=== PATIENT | male | born 1955 | race Caucasian/White ===

== ENCOUNTER 2018-01-22 14:53 | Inpatient (IN) | payer OTHER ==
--- NOTE | 2018-01-22 15:03 | PDOC ---
History of Present Illness - General Stated Complaint: AMS Time Seen by Provider: 01/22/18 15:01 History Source: Correction Records - History of Present Illness Initial Comments: 01/22/18 15:18 A 62 yo M with PMHx of GERD, Schizophrenia, neurogenic bladder s/p suprapubic catheter, HLD, PVD, HTN, brought in from [facility] with diaphoresis and Mental status change. There was nobody by the bedside to provide hx. Pt was able to provide his name, but denied any symptoms. He is able to move all limbs and appears to be restless, crossing and uncrossing his legs. He is DNR/DNI, open to a trial period of feeding tubes and IV fluids and antibiotics as needed. PCP is Dr Liang Timing/Duration: unsure Past History - Past Medical History Allergies/Adverse Reactions: Allergies Allergy/AdvReac Type Severity Reaction Status Date / Time No Known Drug Allergies Allergy Verified 03/17/15 09:50 Home Medications: Ambulatory Orders Acetaminophen [Tylenol .Regular Strength -] 650 mg PO Q6H PRN 02/11/13 Aspirin 81 mg PO DAILY 02/11/13 Clozapine [Clozaril (Nf) -] 300 mg PO DAILY 02/11/13 Clozapine [Clozaril (Nf) -] 400 mg PO HS 02/11/13 Folic Acid - 1 mg PO DAILY 02/11/13 Gemfibrozil [Lopid -] 600 mg PO BID@0700,1630 02/11/13 Risperidone [Risperdal] 2 mg PO BID 02/11/13 Valproic Acid 1,500 mg PO HS 02/11/13 Valproic Acid [Depakene] 1,000 mg PO DAILY 02/11/13 Metoclopramide HCl [Reglan] 5 mg PO TID PRN 03/14/15 Pantoprazole Sodium [Protonix] 20 mg PO DAILY 03/14/15 Anemia: No Asthma: No Cancer: No Cardiac Disorders: No CVA: No COPD: No CHF: No Dementia: No Diabetes: No GI Disorders: Yes (ESOPHAGEAL REFLUX) Disorders: Yes (ATONY OF BLADDER) HTN: Yes Hypercholesterolemia: Yes Liver Disease: No Seizures: No Thyroid Disease: No - Surgical History Abdominal Surgery: No Appendectomy: No Cardiac Surgery: No Cholecystectomy: No Lung Surgery: No Neurologic Surgery: No Orthopedic Surgery: No - Immunization History Immunization Up to Date: Yes - Suicide/Smoking/Psychosocial Hx Smoking Status: No Smoking History: Unknown if ever smoked Number of Cigarettes Smoked Daily: 0 Hx Alcohol Use: No Drug/Substance Use Hx: No Substance Use Type: None Hx Substance Use Treatment: No Review of Systems - Review of Systems Able to Perform ROS?: No (Patient unable to provide) *Physical Exam - Vital Signs 01/22/18 17:23 Vital Signs Temp 99.3 F 01/22/18 15:05 Pulse 99 H 01/22/18 15:05 Resp 16 01/22/18 15:05 BP 101/76 01/22/18 15:05 Pulse Ox 99 01/22/18 15:15 Intake & Output 01/21/18 01/22/18 01/22/18 23:59 11:59 23:59 Weight 79.379 kg Other: Voiding Method External Catheter Height 1.78 m Body Mass Index (BMI) 25.1 Weight Measurement Method Estimated by Staff - Physical Exam General Appearance: Yes: Appropriately Dressed, Other (Able to state his name accurately, obeys commands erratically). No: Apparent Distress HEENT: positive: Pharynx Normal (Dry mucous membranes). negative: Scleral Icterus (L), Nasal Congestion, Sinus Tenderness Neck: positive: Supple. negative: Tender Respiratory/Chest: positive: Lungs Clear, Normal Breath Sounds. negative: Respiratory Distress Cardiovascular: positive: Regular Rate, S1, S2, Tachycardia Gastrointestinal/Abdominal: positive: Normal Bowel Sounds, Soft. negative: Tender, Distended, Hernia Male Genitalia: positive: normal genitalia, other (dark brown urine in bag with suprapubic catheter in place, no blood). negative: hematuria Musculoskeletal: negative: CVA Tenderness Extremity: positive: Normal Inspection, Other (distended leg veins). negative: Coldness, Cyanosis, Delayed Capillary Refill, Swelling Integumentary: positive: Warm Neurologic: positive: Alert, Motor Strength 5/5, Other (Baseline unknown. Pinrolling on right hand. Crossing and uncrossing legs). negative: Facial Droop ED Treatment Course - LABORATORY CBC & Chemistry Diagram: 01/22/18 16:00 01/22/18 20:00 Medical Decision Making - Medical Decision Making 01/22/18 16:44 With AMS- pt could have an intracranial bleed, no witnesses available by the bedside, has bruise on R forearm also R/o intracranial mass R/O sepsis- no temperature, so will hold off blood cultures CBC, CMP, CXR, PT/PTT, Lactic acid, UA, urine culture UA- LE 3+, WBC-21.8 Will give 1g ceftriaxone stat Gentle hydration 500ml stat to reassess for more fluids 01/22/18 16:[address] Liang for sepsis- Leucocytosis, tachycardia, positive UA 01/22/18 16:[address] head 01/22/18 17:02 Markedly dehydrated Cr-3.1, BUN 57, Na- 130, Cl-95 [facility] 1L [facility] 01/22/18 17:27 CK noted to be in [id number]. Plan 2nd Iv line stat 1L Normal saline added 01/22/18 18:24 Patient to be admitted to Dr Liang's service via hospitalist pending call back from hospitalist CT scan head- negative for acute pathology 01/22/18 18:36 D/W Dr Weaver, about alkalinizing urine with the high CK. He thinks hydration is preferred to avoid complications such as metabolic alkalosis 01/22/18 19:03 To get repeat CK in 8-12 hours. Pt signed out to Dr Brunner for continuity of care pending admission by hospitalist team *DC/Admit/Observation/Transfer Diagnosis at time of Disposition: UTI (urinary tract infection), Altered mental status - Discharge Dispostion Condition at time of disposition: Stable - Referrals - Patient Instructions - Post Discharge Activity
--- NOTE | 2018-01-22 15:12 | PDOC ---
Attending Attestation - Resident Resident Name: Sepideh Chang Jasiel - HPI HPI: 01/22/18 17:24 The patient is a 62 year old male with past medical history of hypertension, hyperlipidemia, GERD, schizophrenia, neurogenic bladder s/p catheter from [facility] for mental status changes noted today. Upon evaluation patient is A&O x1 and cannot give any further history. - Physicial Exam PE: 01/22/18 18:24 GENERAL: Awake and alert x2. in no acute distress HEAD: No signs of trauma EYES: PERRLA, EOMI, sclera anicteric, conjunctiva clear ENT: Auricles normal inspection, hearing grossly normal, nares patent, oropharynx clear without exudates. Moist mucosa NECK: Normal ROM, supple, no lymphadenopathy, JVD, or masses LUNGS: Breath sounds equal, clear to auscultation bilaterally. No wheezes, and no crackles HEART: Regular rate and rhythm, normal S1 and S2, no murmurs, rubs or gallops ABDOMEN: Soft, nontender, normoactive bowel sounds. No guarding, no rebound. No masses EXTREMITIES: Normal range of motion, no edema. No clubbing or cyanosis. No cords, erythema, or tenderness NEUROLOGICAL: Cranial nerves II through XII grossly intact. Normal speech. Follows commands. SKIN: Warm, Dry, normal turgor, no rashes or lesions noted. - Medical Decision Making 01/22/18 17:24 Documentation prepared by Lena Vázquez, acting as pediatric medical assistant for Janine Owen MD. <Lena Vázquez - Last Filed: 01/22/18 18:24> - Medical Decision Making Pt presents to the ED after [facility] for altered mental status. Baseline mental status is unclear. Labs show evidence of severe dehydration and rhabdomyolisis with acute renal failure. Will continue aggressive hydration and admit to medicine for continued management. 01/22/18 18:28 <Janine Owen - Last Filed: 01/22/18 18:38>
[2018-01-22] MEDS ORDERED: SODIUM CHLORIDE 0.9% 1000 ML INFUS.BAG IV ONE ×2 (15:42→18:10)
[2018-01-22 16:08] LABS: URINE APPEARANCE CLOUDY; URINE BILIRUBIN NEGATIVE (<2.0 mg/dL); URINE COLOR AMBER; URINE GLUCOSE (UA) NEGATIVE (NEGATIVE); URINE KETONE NEGATIVE (NEGATIVE); URINE NITRITE NEGATIVE (NEGATIVE); URINE UROBILINOGEN NEGATIVE mg/dL (0.2-1.0)
[2018-01-22 16:10] LABS: URINE LEUK ESTERASE 3+ (NEGATIVE); URINE PROTEIN 2+ (NEGATIVE)
[2018-01-22 16:14] LABS: EPI CELLS MODERATE /HPF (FEW); URINE BACTERIA FEW /hpf (NONE SEEN); URINE MUCUS RARE; YEAST MANY
[2018-01-22 16:34] LABS: HEMATOCRIT 42.4 % (35.4-49); HEMOGLOBIN 14.5 GM/dL (11.7-16.9); MCH 32.7 pg (25.7-33.7); MCHC 34.2 g/dl (32.0-35.9); MEAN CELL VOLUME 95.6 fl (80-96); PLATELET COUNT 256 K/MM3 (134-434); RBC 4.44 M/mm3 (4.00-5.60); RDW 13.9 % (11.9-15.9); WHITE BLOOD COUNT 21.8 K/mm3 (4.0-10.0)
[2018-01-22 16:45] LABS: ARTERIAL BLD GAS O2 SATURATION 96.4 % (90-98.9); ARTERIAL BLOOD GAS BASE EXCESS -4.8 meq/l (-2-2); ARTERIAL BLOOD GAS PCO2 26.2 mmHg (35-45); ARTERIAL BLOOD GAS pH 7.44 (7.35-7.45)
[2018-01-22 16:49] LABS: ALLENS TEST POSITIVE
[2018-01-22 16:52] LABS: INR 1.22 (0.82-1.09); PROTHROMBIN TIME (PATIENT) 13.8 SEC (9.7-13.0)
[2018-01-22 16:59] LABS: ALBUMIN 4.2 g/dl (3.4-5.0); ALK PHOS 141 U/L (45-117); ANION GAP 12 (8-16); BILIRUBIN,TOTAL 0.6 mg/dL (0.2-1.0); BLOOD UREA NITROGEN 57 mg/dL (7-18); CALCIUM 8.9 mg/dL (8.5-10.1); CHLORIDE 95 mmol/L (98-107); CO2 23 mmol/L (21-32); CREATININE 3.1 mg/dL (0.7-1.3); GLUCOSE,RANDOM 95 mg/dL (74-106); SGPT/ALT 45 U/L (12-78); SODIUM 130 mmol/L (136-145); TOT PROT 9.3 g/dl (6.4-8.2)
[2018-01-22 17:03] LABS: PLATELET ESTIMATE ADEQUATE
[2018-01-22 17:08] LABS: POTASSIUM 4.8 mmol/L (3.5-5.1); SGOT/AST 207 U/L (15-37)
[2018-01-22] MEDS ORDERED: CEFTRIAXONE 1 GM/50 ML BAG ONE (17:08)
[2018-01-22] MEDS ORDERED: SODIUM CHLORIDE 0.9% 500 ML INFUS.BAG IV ONE (17:22)
[2018-01-22] MEDS ORDERED: MAGNESIUM SULF 50% (8.12 MEQ/2 ML-1 GM VIAL) ONE (18:01)
--- NOTE | 2018-01-22 20:15 | PDOC ---
*Physical Exam - Vital Signs Last Vital Signs Temp Pulse Resp BP Pulse Ox 99.3 F 107 H 20 114/81 100 01/22/18 15:05 01/22/18 18:00 01/22/18 18:00 01/22/18 18:00 01/22/18 18:00 ED Treatment Course - LABORATORY CBC & Chemistry Diagram: 01/22/18 16:00 01/22/18 16:00 - ADDITIONAL ORDERS Additional order review: Laboratory Results 01/22/18 01/22/18 01/22/18 16:00 16:00 16:00 PT with INR INR PTT (Actin FS) Anticoagulation Therapy Puncture Site ABG pH ABG pCO2 at Pt Temp ABG pO2 at Pt Temp ABG HCO3 ABG O2 Sat (Measured) ABG O2 Content ABG Base Excess Travon Test O2 Delivery Device Oxygen Flow Rate Vent Mode Vent Rate Mechanical Rate Pressure Support Vent Sodium Potassium Chloride Carbon Dioxide Anion Gap BUN Creatinine Creat Clearance w eGFR Random Glucose Lactic Acid 1.9 Calcium Magnesium 1.5 L Total Bilirubin AST ALT Alkaline Phosphatase Ammonia Creatine Kinase Creatine Kinase Index Cancelled CK-MB (CK-2) Cancelled Total Protein Albumin Urine Color Urine Appearance Urine pH Ur Specific [place] Urine Protein Urine Glucose (UA) Urine Ketones Urine Blood Urine Nitrite Urine Bilirubin Urine Urobilinogen Ur Leukocyte Esterase Urine WBC (Auto) Urine RBC (Auto) Ur Epithelial Cells Urine Bacteria Urine Mucus Urine Yeast 01/22/18 01/22/18 01/22/18 16:00 16:00 16:00 PT with INR 13.80 H INR 1.22 H PTT (Actin FS) 55.4 H Anticoagulation Therapy Puncture Site ABG pH ABG pCO2 at Pt Temp ABG pO2 at Pt Temp ABG HCO3 ABG O2 Sat (Measured) ABG O2 Content ABG Base Excess Travon Test O2 Delivery Device Oxygen Flow Rate Vent Mode Vent Rate Mechanical Rate Pressure Support Vent Sodium Potassium Chloride Carbon Dioxide Anion Gap BUN Creatinine Creat Clearance w eGFR Random Glucose Lactic Acid Calcium Magnesium Total Bilirubin AST ALT Alkaline Phosphatase Ammonia Creatine Kinase 86443 H Creatine Kinase Index 0.2 CK-MB (CK-2) 31.884 H Total Protein Albumin Urine Color Urine Appearance Urine pH Ur Specific [place] Urine Protein Urine Glucose (UA) Urine Ketones Urine Blood Urine Nitrite Urine Bilirubin Urine Urobilinogen Ur Leukocyte Esterase Urine WBC (Auto) Urine RBC (Auto) Ur Epithelial Cells Urine Bacteria Urine Mucus Urine Yeast 01/22/18 01/22/18 01/22/18 16:00 16:00 16:00 PT with INR INR PTT (Actin FS) Anticoagulation Therapy Puncture Site ABG pH ABG pCO2 at Pt Temp ABG pO2 at Pt Temp ABG HCO3 ABG O2 Sat (Measured) ABG O2 Content ABG Base Excess Travon Test O2 Delivery Device Oxygen Flow Rate Vent Mode Vent Rate Mechanical Rate Pressure Support Vent Sodium 130 L Potassium 4.8 Chloride 95 L Carbon Dioxide 23 Anion Gap 12 BUN 57 H Creatinine 3.1 H Creat Clearance w eGFR 20.52 Random Glucose 95 Lactic Acid Calcium 8.9 Magnesium Total Bilirubin 0.6 AST 207 H ALT 45 Alkaline Phosphatase 141 H Ammonia < 10.00 L Creatine Kinase Creatine Kinase Index CK-MB (CK-2) Total Protein 9.3 H Albumin 4.2 Urine Color Joanne Urine Appearance Cloudy Urine pH 5.0 Ur Specific [place] 1.014 Urine Protein 2+ H Urine Glucose (UA) Negative Urine Ketones Negative Urine Blood 3+ H Urine Nitrite Negative Urine Bilirubin Negative Urine Urobilinogen Negative Ur Leukocyte Esterase 3+ H Urine WBC (Auto) 71 Urine RBC (Auto) 948 Ur Epithelial Cells Moderate Urine Bacteria Few Urine Mucus Rare Urine Yeast Many 01/22/18 15:42 PT with INR INR PTT (Actin FS) Anticoagulation Therapy No Result Required. Puncture Site Right radial ABG pH 7.44 ABG pCO2 at Pt Temp 26.2 L ABG pO2 at Pt Temp 109.0 H ABG HCO3 17.4 L ABG O2 Sat (Measured) 96.4 ABG O2 Content 18.6 ABG Base Excess -4.8 L Travon Test Positive O2 Delivery Device No Result Required. Oxygen Flow Rate 21% Vent Mode No Result Required. Vent Rate No Result Required. Mechanical Rate No Result Required. Pressure Support Vent No Result Required. Sodium Potassium Chloride Carbon Dioxide Anion Gap BUN Creatinine Creat Clearance w eGFR Random Glucose Lactic Acid Calcium Magnesium Total Bilirubin AST ALT Alkaline Phosphatase Ammonia Creatine Kinase Creatine Kinase Index CK-MB (CK-2) Total Protein Albumin Urine Color Urine Appearance Urine pH Ur Specific [place] Urine Protein Urine Glucose (UA) Urine Ketones Urine Blood Urine Nitrite Urine Bilirubin Urine Urobilinogen Ur Leukocyte Esterase Urine WBC (Auto) Urine RBC (Auto) Ur Epithelial Cells Urine Bacteria Urine Mucus Urine Yeast 01/22/18 16:00 RBC 4.44 MCV 95.6 MCHC 34.2 RDW 13.9 MPV 11.0 Neutrophils % No Result Required. Lymphocytes % No Result Required. - Medications Given in the ED: ED Medications Discontinued Medications Generic Name Dose Route Start Last Admin Trade Name Maribell PRN Reason Stop Dose Admin Ceftriaxone Sodium 1,000 mg 01/22/18 16:42 01/22/18 17:06 Rocephin - IVPUSH 01/22/18 16:43 1,000 mg ONCE ONE Administration Magnesium Sulfate/Dextrose 2 200 mls @ 100 mls/hr 01/22/18 17:20 01/22/18 17: 58 gm/ Miscellaneous IVPB 01/22/18 19:19 100 mls/hr ONCE ONE Administration Sodium Chloride 500 ml 01/22/18 15:42 01/22/18 16:16 Normal Saline - IV 01/22/18 15:43 500 ml ASDIR ONE Administration Sodium Chloride 1,000 ml 01/22/18 17:22 01/22/18 17:25 Normal Saline - IV 01/22/18 17:23 1,000 ml ONCE ONE Administration Sodium Chloride 1,000 ml 01/22/18 18:10 01/22/18 18:38 Normal Saline - IV 01/22/18 18:11 1,000 ml ONCE ONE Administration Medical Decision Making - Medical Decision Making Patient signed out to me in stable condition pending admission for Sepsis/ AMS secondary to UTI with white count of 20 along with urine corroborating UTI ( however, with moderate epithelial cells). Patient given 2.5 L NS and abx. Signed out to [employer] on service to admit to med surg under Eusebio. 01/22/18 20:10 *DC/Admit/Observation/Transfer Diagnosis at time of Disposition: UTI (urinary tract infection) Qualifiers: Urinary tract infection type: site unspecified Hematuria presence: with hematuria Qualified Code(s): N39.0 - Urinary tract infection, site not specified ; R31.9 - Hematuria, unspecified; R31.9 - Hematuria, unspecified Altered mental status Qualifiers: Altered mental status type: unspecified Qualified Code(s): R41.82 - Altered mental status, unspecified - Discharge Dispostion Condition at time of disposition: Stable Admit: Yes - Referrals - Patient Instructions - Post Discharge Activity
[2018-01-22 20:49] LABS: ANION GAP 11 (8-16); BLOOD UREA NITROGEN 58 mg/dL (7-18); CALCIUM 7.6 mg/dL (8.5-10.1); CHLORIDE 104 mmol/L (98-107); CO2 20 mmol/L (21-32); CREATININE 2.4 mg/dL (0.7-1.3); GLUCOSE,RANDOM 91 mg/dL (74-106); POTASSIUM 4.1 mmol/L (3.5-5.1); SODIUM 135 mmol/L (136-145)
--- NOTE | 2018-01-22 21:29 | HP ---
CHIEF COMPLAINT: diaphoresis and AMS PCP: Fermin THOMAS HISTORY OF PRESENT ILLNESS: This is a 62 year old male with a sgnificant past medical history of HTN, HLD, neurogenic bladder s/p S-P cath who presented to the ED with AMS and diaphoresis as [facility]. Pt reports no complaints and states that he is feeling fine. ER course was notable for: (1) BUN 57/Cr 3.1 (2[place] [address] (3) WBC 21.8 Recent Travel: pt denies PAST MEDICAL HISTORY: HTN, HLD, PVD, neurogenic bladder, GERD, schizophrenia PAST SURGICAL HISTORY: S-P catheter placement Social History: Smoking: pt denies Alcohol: pt denies Drugs: pt denies Family History: unk Allergies No Known Drug Allergies Allergy (Verified 03/17/15 09:50) HOME MEDICATIONS: 3 Medication Instructions Recorded Acetaminophen [Tylenol .Regular 650 mg PO Q6H PRN 02/11/13 Strength -] Aspirin 81 mg PO DAILY 02/11/13 Clozapine [Clozaril (Nf) -] 300 mg PO DAILY 02/11/13 Clozapine [Clozaril (Nf) -] 400 mg PO HS 02/11/13 Folic Acid - 1 mg PO DAILY 02/11/13 Gemfibrozil [Lopid -] 600 mg PO BID@0700,1630 02/11/13 Risperidone [Risperdal] 2 mg PO BID 02/11/13 Valproic Acid 1,500 mg PO HS 02/11/13 Valproic Acid [Depakene] 1,000 mg PO DAILY 02/11/13 Metoclopramide HCl [Reglan] 5 mg PO TID PRN 03/14/15 Pantoprazole Sodium [Protonix] 20 mg PO DAILY 03/14/15 REVIEW OF SYSTEMS CONSTITUTIONAL: Present: diaphoresis Absent: fever, chills, generalized weakness, malaise, loss of appetite, weight change HEENT: Absent: rhinorrhea, nasal congestion, throat pain, throat swelling, difficulty swallowing, mouth swelling, ear pain, eye pain, visual changes CARDIOVASCULAR: Absent: chest pain, syncope, palpitations, irregular heart rate, lightheadedness , peripheral edema RESPIRATORY: Absent: cough, shortness of breath, dyspnea with exertion, orthopnea, wheezing, stridor, hemoptysis GASTROINTESTINAL: Absent: abdominal pain, abdominal distension, nausea, vomiting, diarrhea, constipation, melena, hematochezia GENITOURINARY: Absent: dysuria, frequency, urgency, hesitancy, hematuria, flank pain, genital pain MUSCULOSKELETAL: Absent: myalgia, arthralgia, joint swelling, back pain, neck pain SKIN: Absent: rash, itching, pallor HEMATOLOGIC/IMMUNOLOGIC: Absent: easy bleeding, easy bruising, lymphadenopathy, frequent infections ENDOCRINE: Absent: unexplained weight gain, unexplained weight loss, heat intolerance, cold intolerance NEUROLOGIC: Present: mental status changes Absent: headache, focal weakness or paresthesias, dizziness, unsteady gait, seizure, bladder or bowel incontinence PSYCHIATRIC: Absent: anxiety, depression, suicidal or homicidal ideation, hallucinations. PHYSICAL EXAMINATION Vital Signs - 24 hr 3 01/22/18 01/22/18 01/22/18 15:05 15:15 18:00 Temperature 99.3 F Pulse Rate 99 H Pulse Rate [ 107 H Apical] Respiratory 16 20 Rate Blood Pressure 101/76 Blood Pressure 114/81 [Left Arm] O2 Sat by Pulse 99 99 100 Oximetry (%) GENERAL: Awake, alert, and fully oriented, in no acute distress. HEAD: Normal with no signs of trauma. EYES: Pupils equal, round and reactive to light, extraocular movements intact, sclera anicteric, conjunctiva clear. No lid lag. EARS, NOSE, THROAT: Ears normal, nares patent, oropharynx clear without exudates. Moist mucous membranes. NECK: Normal range of motion, supple without lymphadenopathy, JVD, or masses. LUNGS: Breath sounds equal, clear to auscultation bilaterally. No wheezes, and no crackles. No accessory muscle use. HEART: Regular rate and rhythm, normal S1 and S2 without murmur, rub or gallop. ABDOMEN: Soft, nontender, not distended, normoactive bowel sounds, no guarding, no rebound, no masses. No hepatomegaly or splenomegaly. MUSCULOSKELETAL: Normal range of motion at all joints. No bony deformities or tenderness. No CVA tenderness. UPPER EXTREMITIES: 2+ pulses, warm, well-perfused. No cyanosis. No clubbing. No peripheral edema. LOWER EXTREMITIES: 2+ pulses, warm, well-perfused. No calf tenderness. No peripheral edema. NEUROLOGICAL: Cranial nerves II-XII intact. Normal speech. Gait not observed. PSYCHIATRIC: Cooperative. Good eye contact. Appropriate mood and affect. SKIN: Warm, dry, normal turgor, no rashes or lesions noted, normal capillary refill. Laboratory Results - last 24 hr 3 01/22/18 01/22/18 01/22/18 15:42 16:00 16:00 WBC 21.8 H RBC 4.44 Hgb 14.5 Hct 42.4 MCV 95.6 MCH 32.7 MCHC 34.2 RDW 13.9 Plt Count 256 MPV 11.0 Total Counted 100 Neutrophils % No Result Required. Neutrophils % (Manual) 68.0 Band Neutrophils % 16.0 Lymphocytes % No Result Required. Lymphocytes % (Manual) 6.0 L Monocytes % (Manual) 8 Eosinophils % (Manual) 2.0 Platelet Estimate Adequate Platelet Comment No clumping noted [place] Cells 1+ PT with INR INR PTT (Actin FS) Anticoagulation Therapy No Result Required. Puncture Site Right radial ABG pH 7.44 ABG pCO2 at Pt Temp 26.2 L ABG pO2 at Pt Temp 109.0 H ABG HCO3 17.4 L ABG O2 Sat (Measured) 96.4 ABG O2 Content 18.6 ABG Base Excess -4.8 L [place]on Test Positive O2 Delivery Device No Result Required. Oxygen Flow Rate 21% Vent Mode No Result Required. Vent Rate No Result Required. Mechanical Rate No Result Required. Pressure Support Vent No Result Required. Sodium Potassium Chloride Carbon Dioxide Anion Gap BUN Creatinine Creat Clearance w eGFR Random Glucose Lactic Acid Calcium Magnesium Total Bilirubin AST ALT Alkaline Phosphatase Ammonia Creatine Kinase Creatine Kinase Index CK-MB (CK-2) Total Protein Albumin Urine Color Joanne Urine Appearance Cloudy Urine pH 5.0 Ur Specific [place] 1.014 Urine Protein 2+ H Urine Glucose (UA) Negative Urine Ketones Negative Urine Blood 3+ H Urine Nitrite Negative Urine Bilirubin Negative Urine Urobilinogen Negative Ur Leukocyte Esterase 3+ H Urine WBC (Auto) 71 Urine RBC (Auto) 948 Ur Epithelial Cells Moderate Urine Bacteria Few Urine Mucus Rare Urine Yeast Many 3 01/22/18 01/22/18 01/22/18 16:00 16:00 16:00 WBC RBC Hgb Hct MCV MCH MCHC RDW Plt Count MPV Total Counted Neutrophils % Neutrophils % (Manual) Band Neutrophils % Lymphocytes % Lymphocytes % (Manual) Monocytes % (Manual) Eosinophils % (Manual) Platelet Estimate Platelet Comment [place] Cells PT with INR 13.80 H INR 1.22 H PTT (Actin FS) 55.4 H Anticoagulation Therapy Puncture Site ABG pH ABG pCO2 at Pt Temp ABG pO2 at Pt Temp ABG HCO3 ABG O2 Sat (Measured) ABG O2 Content ABG Base Excess [place] Test O2 Delivery Device Oxygen Flow Rate Vent Mode Vent Rate Mechanical Rate Pressure Support Vent Sodium 130 L Potassium 4.8 Chloride 95 L Carbon Dioxide 23 Anion Gap 12 BUN 57 H Creatinine 3.1 H Creat Clearance w eGFR 20.52 Random Glucose 95 Lactic Acid 1.9 Calcium 8.9 Magnesium Total Bilirubin 0.6 AST 207 H ALT 45 Alkaline Phosphatase 141 H Ammonia < 10.00 L Creatine Kinase 59367 H Creatine Kinase Index 0.2 CK-MB (CK-2) 31.884 H Total Protein 9.3 H Albumin 4.2 Urine Color Urine Appearance Urine pH Ur Specific [place] Urine Protein Urine Glucose (UA) Urine Ketones Urine Blood Urine Nitrite Urine Bilirubin Urine Urobilinogen Ur Leukocyte Esterase Urine WBC (Auto) Urine RBC (Auto) Ur Epithelial Cells Urine Bacteria Urine Mucus Urine Yeast 3 01/22/18 01/22/18 01/22/18 16:00 16:00 20:00 WBC RBC Hgb Hct MCV MCH MCHC RDW Plt Count MPV Total Counted Neutrophils % Neutrophils % (Manual) Band Neutrophils % Lymphocytes % Lymphocytes % (Manual) Monocytes % (Manual) Eosinophils % (Manual) Platelet Estimate Platelet Comment [place] Cells PT with INR INR PTT (Actin FS) Anticoagulation Therapy Puncture Site ABG pH ABG pCO2 at Pt Temp ABG pO2 at Pt Temp ABG HCO3 ABG O2 Sat (Measured) ABG O2 Content ABG Base Excess [place] Test O2 Delivery Device Oxygen Flow Rate Vent Mode Vent Rate Mechanical Rate Pressure Support Vent Sodium 135 L Potassium 4.1 Chloride 104 Carbon Dioxide 20 L Anion Gap 11 BUN 58 H Creatinine 2.4 H D Creat Clearance w eGFR Random Glucose 91 Lactic Acid Calcium 7.6 L Magnesium 1.5 L Total Bilirubin AST ALT Alkaline Phosphatase Ammonia Creatine Kinase Creatine Kinase Index Cancelled CK-MB (CK-2) Cancelled Total Protein Albumin Urine Color Urine Appearance Urine pH Ur Specific [place] Urine Protein Urine Glucose (UA) Urine Ketones Urine Blood Urine Nitrite Urine Bilirubin Urine Urobilinogen Ur Leukocyte Esterase Urine WBC (Auto) Urine RBC (Auto) Ur Epithelial Cells Urine Bacteria Urine Mucus Urine Yeast ECG NSR vent rate 99, QTC [address]/T wave changes Radiology Reports CT head noncontrast THIS IS A PRELIMINARY REPORT FROM [facility] [employer] FINDINGS: 1. There is no evidence of an acute intracranial process, intracranial hemorrhage or mass effect. 2. Ventriculomegaly may be slightly out of proportion to the degree of atrophy. A component of hydrocephalus cannot entirely be excluded. Comparison previous imaging studies would be helpful to evaluate for the static or dynamic nature of this finding. 3. Visualized portions of the orbits, paranasal and mastoid sinuses are unremarkable. 4. The bony structures are unremarkable in appearance. THIS DOCUMENT HAS BEEN ELECTRONICALLY SIGNED Amanda Tobin MD 01/22/2018 18:09 EST ASSESSMENT/PLAN: 62yM with PMH HTN, HLD, PVD, neurogenic bladder, GERD, schizophrenia [facility] for diaphoresis and altered mental status. Sepsis secondary to uti - as evidenced by elevated WBC and HR - cont ceftriaxone - given 2.5L NS in ed - follow urine cultures Elevated CK - unclear etiology - will hold home lopid - given 2.5L IVF in ED, will repeat CK now and hold further IVF given hyponatremia and rapid correction - repeat CK in am NANNETTE - likely due to hypovolemia - given 2.5L NS in ED - repeat Cr improving - hold IVF pending repeat CK Hyponatremia - corrected from 130 to 135 with 2.5L NS in ED - would hold on further IVF at this point unless CK not improved on repeat labs metabolic encephalopathy secondary to urosepisis, NANNETTE, hyponatremia - cont current treatment plan HTN - BP stable off meds, cont to monitor HLD - hold home lopid given CK schizophrenia - cont home risperdal, clozaril and nuedexta DVT PPX - heparin 5000u BID FEN - hold on further IVF pending CK - bmp in am - low sodium diet Dispo: Pt currently requires further inpatient management of his emergent condition. Visit type - Emergency Visit Emergency Visit: Yes ED Registration Date: 01/22/18 Care time: The patient presented to the Emergency Department on the above date and was hospitalized for further evaluation of their emergent condition. - New Patient This patient is new to me today: Yes Date on this admission: 01/22/18 - Critical Care Critical Care patient: No Hospitalist Screening - Colonoscopy Questionnaire Colonoscopy Questionnaire: Colonoscopy Questionnaire - Patient: 50 - 75 years old and never had a screening colonoscopy: Unknown History of colon or rectal polyps, or CA: No History of IBD, Crohn's disease or UC: No History of abdominal radiation therapy as a child: No - Relative: 1 with colon or rectal CA, or polyps at age 60 or younger: Unknown Colon or rectal CA diagnosed at age 45 or younger: Unknown Multiple relatives with colon or rectal CA: Unknown - Outcome: Screening Result: Negative Screen
[2018-01-22] MEDS ORDERED: ACETAMINOPHEN 325 MG TABLET (FP) PO PRN (23:18)
[2018-01-23] MEDS ORDERED: SODIUM CHLORIDE 1,000 ML IV SCH (02:45)
[2018-01-23 08:15] LABS: BASO % 0.1 % (0-2.0); HEMATOCRIT 38.4 % (35.4-49); HEMOGLOBIN 13.1 GM/dL (11.7-16.9); MCH 32.6 pg (25.7-33.7); MCHC 34.2 g/dl (32.0-35.9); MEAN CELL VOLUME 95.3 fl (80-96); MEAN PLT VOLUME 10.8 fl (7.5-11.1); MONO % 7.9 % (3.8-10.2); PLATELET COUNT 233 K/MM3 (134-434); RBC 4.02 M/mm3 (4.00-5.60); RDW 13.7 % (11.9-15.9); WHITE BLOOD COUNT 20.3 K/mm3 (4.0-10.0)
[2018-01-23 08:32] LABS: CHLORIDE 105 mmol/L (98-107); SODIUM 138 mmol/L (136-145)
[2018-01-23 09:09] LABS: ANION GAP 11 (8-16); BLOOD UREA NITROGEN 55 mg/dL (7-18); CALCIUM 8.7 mg/dL (8.5-10.1); CO2 22 mmol/L (21-32); CREATININE 1.5 mg/dL (0.7-1.3); GLUCOSE,RANDOM 105 mg/dL (74-106); MAGNESIUM 2.4 mg/dL (1.8-2.4); PHOSPHOROUS 2.9 mg/dL (2.5-4.9)
[2018-01-23] MEDS ORDERED: PT OWN MED DRAWER 7, Y5N ONE (09:26)
[2018-01-23] MEDS ORDERED: DEXTROSE 5%-WATER - 50 ML IVPB ONE (09:26)
[2018-01-23] MEDS ORDERED: cefTRIAXone SODIUM 1 GM VIAL ONE (09:26)
[2018-01-23] MEDS: CEFTRIAXONE 1 GM in DEXTROSE 5%-WATER - 50 ML IVPB SCH (09:31)
[2018-01-23] MEDS: FOLIC ACID 1 MG TABLET (FP) PO SCH (09:32)
[2018-01-23] MEDS: risperiDONE 1 MG TABLET (FP) PO SCH ×2 (09:33→23:16)
[2018-01-23] MEDS: cloZAPine 100 MG TABLET PO SCH ×2 (09:33→23:17)
[2018-01-23] MEDS: ASPIRIN 81 MG CHEWABLE TABLETS PO SCH (09:33)
[2018-01-23] MEDS: HEPARIN NA (PORCINE) 5,000 UNITS/ML 1ML VIAL SQ SCH ×2 (09:35→23:16)
[2018-01-23] MEDS: VALPROIC ACID 250 MG CAPSULE PO SCH ×2 (09:35→23:16)
[2018-01-23] MEDS: DORZOLAMIDE 2% HCL OPHTHALMIC SOLUTION 10 ML BOTTLE OU SCH ×2 (09:36→23:17)
[2018-01-23] MEDS ORDERED: risperiDONE 2 MG TABLET PO SCH (10:00)
[2018-01-23] MEDS ORDERED: VALPROIC ACID 250 MG CAPSULE PO SCH ×2 (10:00→22:00)
--- NOTE | 2018-01-23 10:46 | EKG ---
Test Reason : Blood Pressure : / mmHG Vent. Rate : 099 BPM Atrial Rate : 099 BPM P-R Int : 174 ms QRS Dur : 082 ms QT Int : 344 ms P-R-T Axes : 049 005 053 degrees QTc Int : 441 ms NORMAL SINUS RHYTHM NORMAL ECG NO PREVIOUS ECGS AVAILABLE Confirmed by CAMPOS OLGUIN MD ([id number]) on 01/23/2018 10:45:28 AM Referred By: Confirmed By:CAMPOS OLGUIN MD
--- NOTE | 2018-01-23 10:57 | PN ---
Progress Note, Physician History of Present Illness: pt seen/examined . chart reviewed. Awake/ comfortable Denies pain. afebrile - Current Medication List Current Medications: Active Medications Aspirin (Asa -) 81 mg PO DAILY [facility] Last Admin: 01/23/18 09:33 Dose: 81 mg Clozapine (Clozaril -) 300 mg PO DAILY [facility] Last Admin: 01/23/18 09:33 Dose: 300 mg Clozapine (Clozaril -) 400 mg PO HS [facility] Dorzolamide HCl (Trusopt 2%) 1 drop OU BID [facility] Last Admin: 01/23/18 09:36 Dose: 1 drop Folic Acid (Folic Acid -) 1 mg PO DAILY [facility] Last Admin: 01/23/18 09:32 Dose: 1 mg Heparin Sodium (Porcine) (Heparin -) 5,000 unit SQ BID [facility] Last Admin: 01/23/18 09:35 Dose: 5,000 unit Ceftriaxone Sodium 1 gm/ (Dextrose) 50 mls @ 100 mls/hr IVPB DAILY [facility] PRN Reason: Protocol Last Admin: 01/23/18 09:31 Dose: 100 mls/hr Sodium Chloride (Normal Saline -) 1,000 mls @ 100 mls/hr IV ASDIR RAYNE Latanoprost (Xalatan 0.005% Eye Drops -) 1 drop OU HS [facility] Risperidone (Risperdal -) 2 mg PO HS RAYNE Risperidone (Risperdal -) 1 mg PO DAILY [facility] Last Admin: 01/23/18 09:33 Dose: 1 mg Senna (Senna -) 2 tab PO HS [facility] Valproic Acid (Depakene -) 1,000 mg PO BID [facility] Last Admin: 01/23/18 09:35 Dose: 1,000 mg - Objective Vital Signs: Vital Signs Temperature 97.7 F 01/23/18 07:37 Pulse Rate 107 H 01/23/18 07:37 Respiratory Rate 20 01/23/18 07:37 Blood Pressure 125/66 01/23/18 07:37 O2 Sat by Pulse Oximetry (%) 100 01/22/18 18:00 Constitutional: Yes: No Distress, Calm Eyes: Yes: Conjunctiva Clear Neck: Yes: Supple Cardiovascular: Yes: Regular Rate and Rhythm Respiratory: Yes: CTA Bilaterally Gastrointestinal: Yes: Soft, Other (suprapubic catheter +) Edema: No Labs: CBC, BMP 01/23/18 07:30 01/23/18 06:30 INR, PTT INR 1.22 (0.82-1.09) H 01/22/18 16:00 Problem List - Problems (1) Suprapubic catheter Code(s): Z93.59 - OTHER CYSTOSTOMY STATUS (2) UTI (urinary tract infection) Code(s): N39.0 - URINARY TRACT INFECTION, SITE NOT SPECIFIED Qualifiers: Urinary tract infection type: site unspecified Hematuria presence: with hematuria Qualified Code(s): N39.0 - Urinary tract infection, site not specified; R31.9 - Hematuria, unspecified; R31.9 - Hematuria, unspecified Assessment/Plan Clinically stable wbc elevated bun/ cr better continue abx increase fluids f/u labs/ cultures dvt prophylaxis will follow
--- NOTE | 2018-01-23 11:09 | CONSULT ---
Consult - text type - Consultation Consultation Note: Renal Consult for NANNETTE and Pigment Injury This is a 62 year old gentleman with PMhx of Neurogenic Bladder s/p Supra-pubic catheter who presented with diaphoresis and AMS and found to have UTI and Rhabdomyolysis with NANNETTE. Pt seen and examined at the bedside. Cannot recall the events that brought him into the hospital. Denies any pain, sob, N/V/D, Fever, chills, Rash. Denies using any NSAIDs or having contrast exposure. Denies any recent Abx use. Reports making good urine w/o flank pain via SP catheter. On IVF here. Spann in place with yellow urine. PMhx: As above Allergies: NKDA Family Hx: NC Social hx: no T/A/D ROS: As per HPI Home Medications Medication Instructions Recorded Aspirin 81 mg PO DAILY 02/11/13 Clozapine [Clozaril (Nf) -] 300 mg PO DAILY 02/11/13 Clozapine [Clozaril (Nf) -] 400 mg PO HS 02/11/13 Folic Acid - 1 mg PO DAILY 02/11/13 Gemfibrozil [Lopid -] 600 mg PO BID@0700,1630 02/11/13 Risperidone [Risperdal] 1 mg PO DAILY 02/11/13 Valproic Acid [Depakene] 1,000 mg PO BID 02/11/13 Pantoprazole Sodium [Protonix] 20 mg PO DAILY 03/14/15 Cholecalciferol (Vitamin D3) 50,000 unit PO WEEKLY 01/22/18 [Optimal D3] Dextromethorphan HBr/Quinidine 1 each PO BID 01/22/18 [Nuedexta 20-10 mg Capsule] Dorzolamide HCl [Trusopt 2%] 1 drop OU BID 01/22/18 Latanoprost 0.005% Eye Drops 1 drop OU HS 01/22/18 [Xalatan 0.005% Eye Drops -] Risperidone [Risperdal] 2 mg PO HS 01/22/18 Sennosides [Senna] 2 tab PO HS 01/22/18 Vital Signs Temperature 97.7 F 01/23/18 07:37 Pulse Rate 107 H 01/23/18 07:37 Respiratory Rate 20 01/23/18 07:37 Blood Pressure 125/66 01/23/18 07:37 O2 Sat by Pulse Oximetry (%) 100 05/06/18 18:00 Intake & Output 01/20/18 01/21/18 01/22/18 01/23/18 23:59 23:59 23:59 23:59 Intake Total 1999 395 Output Total 100 Balance 1999 295 Weight 79.379 kg 80.921 kg NAD, awake and alert Oriented x 2 Dry MM No JVD RRR, No M/R CTA (anterior exam) soft, mid distension, + SP catheter in place with no discharge around exit site No LE edema, clubbing or cyanosis Spann bag with yellow urine CBC, BMP 01/23/18 07:30 01/23/18 06:30 Laboratory Tests 01/22/18 01/22/18 01/23/18 16:00 23:00 06:30 Calcium 8.7 Phosphorus 2.9 Magnesium 2.4 D Creatine Kinase 03604 H 8936 H 8670 H Laboratory Tests 01/22/18 01/23/18 16:00 06:30 Urine Protein 2+ H Urine Blood 3+ H Ur Leukocyte Esterase 3+ H Urine WBC (Auto) 71 Urine RBC (Auto) 948 Valproic Acid 46.044 L Current Medications Aspirin (Asa -) 81 mg PO DAILY [facility] Last Admin: 01/23/18 09:33 Dose: 81 mg Clozapine (Clozaril -) 300 mg PO DAILY [facility] Last Admin: 01/23/18 09:33 Dose: 300 mg Clozapine (Clozaril -) 400 mg PO HS [facility] Dorzolamide HCl (Trusopt 2%) 1 drop OU BID [facility] Last Admin: 01/23/18 09:36 Dose: 1 drop Folic Acid (Folic Acid -) 1 mg PO DAILY [facility] Last Admin: 01/23/18 09:32 Dose: 1 mg Heparin Sodium (Porcine) (Heparin -) 5,000 unit SQ BID [facility] Last Admin: 01/23/18 09:35 Dose: 5,000 unit Ceftriaxone Sodium 1 gm/ (Dextrose) 50 mls @ 100 mls/hr IVPB DAILY [facility] PRN Reason: Protocol Last Admin: 01/23/18 09:31 Dose: 100 mls/hr Sodium Chloride (Normal Saline -) 1,000 mls @ 100 mls/hr IV ASDIR RAYNE Latanoprost (Xalatan 0.005% Eye Drops -) 1 drop OU HS [facility] Risperidone (Risperdal -) 2 mg PO HS [facility] Risperidone (Risperdal -) 1 mg PO DAILY [facility] Last Admin: 01/23/18 09:33 Dose: 1 mg Senna (Senna -) 2 tab PO HS [facility] Valproic Acid (Depakene -) 1,000 mg PO BID [facility] Last Admin: 01/23/18 09:35 Dose: 1,000 mg 62 year old gentleman with PMhx of Neurogenic Bladder s/p Supra-pubic catheter who presented with diaphoresis and AMS and found to have UTI and Rhabdomyolysis with NANNETTE. #Acute Renal Failure in setting of Rhabdomyolysis/UTI #Rhabdomyolysis #UTI/Sepsis #Hematuria #Obstructive Uropathy with Supra-pubic catheter Etiology of renal failure could be pigment injury vs volume depletion Check Urine studies for FeNa, UPCR 'Repeat UA in 48 hours to access for improvement in hematuira (likely a result of cystitis) Continue Abx, f/u blood and urine cultures if renal function continues to improve no need for renal imaging etiology of rhabdomyolysis is unclear at this time Continue isotonic saline at 100cc per hour Trend BMP, Mg, Phos Continue Psych meds as per primary Thank you Will follow Kenny Weaver DO
[2018-01-23] MEDS: SODIUM CHLORIDE 1,000 ML IV SCH (11:29)
--- NOTE | 2018-01-23 17:38 | CON.GU ---
Consult Consult Specialty:: urology Reason for Consultation:: uti/acute renal insufficiency/neurogenic bladder - History of Present Illness Chief Complaint: neurogenic bladder/TERESA/uti History of Present Illness: Patient with longstanding history of a neurogenic bladder managed with a suprapubic tube. The patient is admitted with a uti and acute renal insufficiency. The patient is unable to give a good history due to psychiatric illness. - History Source History Provided By: Medical Record, Caregiver Limitations to Obtaining History: Clinical Condition - Alcohol/Substance Use Hx Alcohol Use: No - Smoking History Smoking history: Unknown if ever smoked Aproximately how many cigarettes per day: 0 Home Medications - Allergies Allergies/Adverse Reactions: Allergies Allergy/AdvReac Type Severity Reaction Status Date / Time No Known Drug Allergies Allergy Verified 03/17/15 09:50 - Home Medications Home Medications: Ambulatory Orders Aspirin 81 mg PO DAILY 02/11/13 Clozapine [Clozaril (Nf) -] 300 mg PO DAILY 02/11/13 Clozapine [Clozaril (Nf) -] 400 mg PO HS 02/11/13 Folic Acid - 1 mg PO DAILY 02/11/13 Gemfibrozil [Lopid -] 600 mg PO BID@0700,1630 02/11/13 Risperidone [Risperdal] 1 mg PO DAILY 02/11/13 Valproic Acid [Depakene] 1,000 mg PO BID 02/11/13 Pantoprazole Sodium [Protonix] 20 mg PO DAILY 03/14/15 Cholecalciferol (Vitamin D3) [Optimal D3] 50,000 unit PO WEEKLY 01/22/18 Dextromethorphan HBr/Quinidine [Nuedexta 20-10 mg Capsule] 1 each PO BID Dorzolamide HCl [Trusopt 2%] 1 drop OU BID 01/22/18 Latanoprost 0.005% Eye Drops [Xalatan 0.005% Eye Drops -] 1 drop OU HS 01/22/18 Risperidone [Risperdal] 2 mg PO HS 01/22/18 Sennosides [Senna] 2 tab PO HS 01/22/18 Physical Exam- Vital Signs: Vital Signs Temperature 98.7 F 01/23/18 13:22 Pulse Rate 101 H 01/23/18 13:22 Respiratory Rate 18 01/23/18 13:22 Blood Pressure 136/75 01/23/18 13:22 O2 Sat by Pulse Oximetry (%) 98 01/23/18 09:00 Constitutional: Yes: Well Nourished, No Distress, Calm Eyes: Yes: WNL, Conjunctiva Clear, EOM Intact HENT: Yes: WNL Neck: Yes: WNL, Supple, Trachea Midline Cardiovascular: Yes: Regular Rate and Rhythm Respiratory: Yes: WNL, Regular Gastrointestinal: Yes: WNL, Normal Bowel Sounds, Soft Renal/: Yes: WNL Pelvis: Yes: WNL Testicles: Yes: WNL Scrotum: Yes: WNL Penis: Yes: WNL Prostate Exam: Yes: WNL Musculoskeletal: Yes: WNL Labs: CBC, BMP 01/23/18 07:30 01/23/18 06:30 Assessment/Plan imp acute renal insufficiency uti neurogenic bladder plan suprapubic tube change will be needed Q 4-6 weeks continue antibiotics and follow creatinine procedure note suprapubic tube catheter changed emergently due to clinical status. 26 thai daigle placed
[2018-01-23] MEDS: SENNOSIDES 8.6MG TABLET (FP) PO SCH (23:16)
[2018-01-23] MEDS: LATANOPROST 0.005% OPHTH SOLN 2.5ML BOTTLE OU SCH (23:17)
[2018-01-24 08:05] LABS: BASO % 0.4 % (0-2.0); HEMATOCRIT 35.2 % (35.4-49); HEMOGLOBIN 12.1 GM/dL (11.7-16.9); LYMPH % 11.8 % (8-40); MCH 32.5 pg (25.7-33.7); MCHC 34.3 g/dl (32.0-35.9); MEAN CELL VOLUME 94.8 fl (80-96); MEAN PLT VOLUME 10.7 fl (7.5-11.1); NEUT % 77.8 % (42.8-82.8); PLATELET COUNT 207 K/MM3 (134-434); RBC 3.71 M/mm3 (4.00-5.60); RDW 13.6 % (11.9-15.9); WHITE BLOOD COUNT 15.4 K/mm3 (4.0-10.0)
[2018-01-24 08:30] LABS: CHLORIDE 104 mmol/L (98-107); POTASSIUM 3.9 mmol/L (3.5-5.1); SODIUM 136 mmol/L (136-145)
[2018-01-24 08:50] LABS: ALBUMIN 2.8 g/dl (3.4-5.0); ALK PHOS 90 U/L (45-117); ANION GAP 9 (8-16); BILIRUBIN,TOTAL 0.6 mg/dL (0.2-1.0); BLOOD UREA NITROGEN 37 mg/dL (7-18); CALCIUM 8.1 mg/dL (8.5-10.1); CO2 23 mmol/L (21-32); GLUCOSE,RANDOM 86 mg/dL (74-106); SGOT/AST 88 U/L (15-37); SGPT/ALT 32 U/L (12-78); TOT PROT 6.5 g/dl (6.4-8.2)
[2018-01-24] MEDS ORDERED: cefTRIAXone SODIUM 1 GM VIAL ONE (09:41)
[2018-01-24] MEDS ORDERED: DEXTROSE 5%-WATER - 50 ML IVPB ONE (09:42)
[2018-01-24] MEDS: CEFTRIAXONE 1 GM in DEXTROSE 5%-WATER - 50 ML IVPB SCH (10:01)
[2018-01-24] MEDS: HEPARIN NA (PORCINE) 5,000 UNITS/ML 1ML VIAL SQ SCH ×2 (10:01→21:34)
[2018-01-24] MEDS: ASPIRIN 81 MG CHEWABLE TABLETS PO SCH (10:01)
[2018-01-24] MEDS: FOLIC ACID 1 MG TABLET (FP) PO SCH (10:01)
[2018-01-24] MEDS: risperiDONE 1 MG TABLET (FP) PO SCH ×2 (10:01→21:36)
[2018-01-24] MEDS: cloZAPine 100 MG TABLET PO SCH ×2 (10:02→21:38)
[2018-01-24] MEDS: VALPROIC ACID 250 MG CAPSULE PO SCH ×2 (10:02→21:43)
[2018-01-24] MEDS: DORZOLAMIDE 2% HCL OPHTHALMIC SOLUTION 10 ML BOTTLE OU SCH ×2 (10:03→21:42)
[2018-01-24] MEDS: SODIUM CHLORIDE 1,000 ML IV SCH ×4 (11:47→23:42)
--- NOTE | 2018-01-24 13:03 | PN ---
Progress Note, Physician Chief Complaint: events noted pt is calm no distress - Current Medication List Current Medications: Active Medications Aspirin (Asa -) 81 mg PO DAILY [facility] Last Admin: 01/24/18 10:01 Dose: 81 mg Clozapine (Clozaril -) 300 mg PO DAILY [facility] Last Admin: 01/24/18 10:02 Dose: 300 mg Clozapine (Clozaril -) 400 mg PO HS [facility] Last Admin: 01/23/18 23:17 Dose: 400 mg Dorzolamide HCl (Trusopt 2%) 1 drop OU BID [facility] Last Admin: 01/24/18 10:03 Dose: 1 drop Folic Acid (Folic Acid -) 1 mg PO DAILY [facility] Last Admin: 01/24/18 10:01 Dose: 1 mg Heparin Sodium (Porcine) (Heparin -) 5,000 unit SQ BID [facility] Last Admin: 01/24/18 10:01 Dose: 5,000 unit Ceftriaxone Sodium 1 gm/ (Dextrose) 50 mls @ 100 mls/hr IVPB DAILY [facility] PRN Reason: Protocol Last Admin: 01/24/18 10:01 Dose: 100 mls/hr Sodium Chloride (Normal Saline -) 1,000 mls @ 100 mls/hr IV ASDIR [facility] Last Admin: 01/24/18 11:47 Dose: 100 mls/hr Latanoprost (Xalatan 0.005% Eye Drops -) 1 drop OU [facility] Last Admin: 01/23/18 23:17 Dose: 1 drop Risperidone (Risperdal -) 2 mg PO HS [facility] Last Admin: 01/23/18 23:16 Dose: 2 mg Risperidone (Risperdal -) 1 mg PO DAILY [facility] Last Admin: 01/24/18 10:01 Dose: 1 mg Senna (Senna -) 2 tab PO [facility] Last Admin: 01/23/18 23:16 Dose: 2 tab Valproic Acid (Depakene -) 1,000 mg PO BID [facility] Last Admin: 01/24/18 10:02 Dose: 1,000 mg - Objective Vital Signs: Vital Signs Temperature 98.8 F 01/24/18 06:00 Pulse Rate 105 H 01/24/18 06:00 Respiratory Rate 20 01/24/18 06:00 Blood Pressure 126/70 01/24/18 06:00 O2 Sat by Pulse Oximetry (%) 94 L 05/07/18 21:00 Constitutional: Yes: No Distress, Calm Cardiovascular: Yes: Regular Rate and Rhythm Respiratory: Yes: Diminished Gastrointestinal: Yes: Normal Bowel Sounds, Soft, Other (suprapubic cath). No: Tenderness Edema: No Labs: CBC, BMP 01/24/18 06:15 01/24/18 06:15 INR, PTT INR 1.22 (0.82-1.09) H 01/22/18 16:00 Problem List - Problems (1) Sepsis Code(s): A41.9 - SEPSIS, UNSPECIFIED ORGANISM (2) Rhabdomyolysis Code(s): M62.82 - RHABDOMYOLYSIS (3) Acute kidney failure Code(s): N17.9 - ACUTE KIDNEY FAILURE, UNSPECIFIED (4) Altered mental status Code(s): R41.82 - ALTERED MENTAL STATUS, UNSPECIFIED Qualifiers: Altered mental status type: unspecified Qualified Code(s): R41.82 - Altered mental status, unspecified (5) Suprapubic catheter Code(s): Z93.59 - OTHER CYSTOSTOMY STATUS (6) UTI (urinary tract infection) Code(s): N39.0 - URINARY TRACT INFECTION, SITE NOT SPECIFIED Qualifiers: Urinary tract infection type: site unspecified Hematuria presence: with hematuria Qualified Code(s): N39.0 - Urinary tract infection, site not specified; R31.9 - Hematuria, unspecified; R31.9 - Hematuria, unspecified Assessment/Plan PLAN IV antibiotics Suprapubic cath changed by renal function better iv fluids trend CPK clinically improving-- WBC decreasing
--- NOTE | 2018-01-24 15:58 | PN ---
Progress Note (short form) - Note Progress Note: Renal Follow up for NANNETTE Pt seen and examined at the bedside groggy but awakens to verbal stimuli denies any CP, SOB, abd pain on IVF suprapubic catheter was exchanged making urine Vital Signs Temperature 99.8 F H 01/24/18 15:49 Pulse Rate 94 H 01/24/18 15:49 Respiratory Rate 22 01/24/18 15:49 Blood Pressure 126/82 01/24/18 15:49 O2 Sat by Pulse Oximetry (%) 93 L 01/24/18 09:00 Intake & Output 01/21/18 01/22/18 01/23/18 01/24/18 23:59 23:59 23:59 23:59 Intake Total 1999 775 Output Total 1100 Balance 1999 - Weight 79.379 kg 80.921 kg NAD, sleeping No JVD RRR, No M/R CTA (anterior exam) No LE edema, clubbing or cyanosis Spann bag with yellow urine CBC, BMP 01/24/18 06:15 01/24/18 06:15 Current Medications Aspirin (Asa -) 81 mg PO DAILY [facility] Last Admin: 01/24/18 10:01 Dose: 81 mg Clozapine (Clozaril -) 300 mg PO DAILY [facility] Last Admin: 01/24/18 10:02 Dose: 300 mg Clozapine (Clozaril -) 400 mg PO HS [facility] Last Admin: 01/23/18 23:17 Dose: 400 mg Dorzolamide HCl (Trusopt 2%) 1 drop OU BID [facility] Last Admin: 01/24/18 10:03 Dose: 1 drop Folic Acid (Folic Acid -) 1 mg PO DAILY [facility] Last Admin: 01/24/18 10:01 Dose: 1 mg Heparin Sodium (Porcine) (Heparin -) 5,000 unit SQ BID [facility] Last Admin: 01/24/18 10:01 Dose: 5,000 unit Ceftriaxone Sodium 1 gm/ (Dextrose) 50 mls @ 100 mls/hr IVPB DAILY [facility] PRN Reason: Protocol Last Admin: 01/24/18 10:01 Dose: 100 mls/hr Sodium Chloride (Normal Saline -) 1,000 mls @ 100 mls/hr IV ASDIR [facility] Last Admin: 01/24/18 11:47 Dose: 100 mls/hr Latanoprost (Xalatan 0.005% Eye Drops -) 1 drop OU HS [facility] Last Admin: 01/23/18 23:17 Dose: 1 drop Risperidone (Risperdal -) 2 mg PO HS [facility] Last Admin: 01/23/18 23:16 Dose: 2 mg Risperidone (Risperdal -) 1 mg PO DAILY [facility] Last Admin: 01/24/18 10:01 Dose: 1 mg Senna (Senna -) 2 tab PO [facility] Last Admin: 01/23/18 23:16 Dose: 2 tab Valproic Acid (Depakene -) 1,000 mg PO BID [facility] Last Admin: 01/24/18 10:02 Dose: 1,000 mg 62 year old gentleman with PMhx of Neurogenic Bladder s/p Supra-pubic catheter who presented with diaphoresis and AMS and found to have UTI and Rhabdomyolysis with NANNETTE. #Acute Renal Failure in setting of Rhabdomyolysis/UTI #Rhabdomyolysis #UTI/Sepsis #Hematuria #Obstructive Uropathy with Supra-pubic catheter Renal function improved s/p IVF urine studies pending CK levels have downtrended, will decrease IVF rate Trend renal function, electrolytes and CK levels daily Continue Abx for UTI/Sepsis Thank you Will follow Kenny Weaver DO
[2018-01-24] MEDS ORDERED: PT OWN MED DRAWER 7, Y5N ONE (21:33)
[2018-01-24] MEDS: SENNOSIDES 8.6MG TABLET (FP) PO SCH (21:36)
[2018-01-24] MEDS: LATANOPROST 0.005% OPHTH SOLN 2.5ML BOTTLE OU SCH (21:42)
[2018-01-25] MEDS ORDERED: FUROSEMIDE 40 MG/4 ML INJECTABLE VIAL IVPUSH ONE (04:15)
[2018-01-25] MEDS ORDERED: morphine SULFATE 4 MG/ML VIAL IVPUSH ONE (04:16)
[2018-01-25] MEDS ORDERED: morphine SULFATE 4 MG/ML VIAL ONE (04:17)
[2018-01-25] MEDS ORDERED: FUROSEMIDE 40 MG/4 ML INJECTABLE VIAL ONE (04:18)
--- NOTE | 2018-01-25 04:19 | RAPID ---
<Feng Daniels - Last Filed: 01/25/18 04:50> Physical Examination Vital Signs: Vital Signs Temperature 98.6 F 01/25/18 00:00 Pulse Rate 98 H 01/25/18 00:00 Respiratory Rate 20 01/25/18 00:00 Blood Pressure 122/76 01/25/18 00:00 O2 Sat by Pulse Oximetry (%) 93 L 01/24/18 21:00 Findings/Remarks: HX Rapid response called at 4:15am. Upon arrival, team was informed that patient became acutely short of breath. Patient is unable to provide a detailed history. Patient is not responding to name and is moaning in distress. PE: Vitals BP 112/61 HR 125 bpm 46% O2 saturation on RA --> 76% O2 100% nonrebreather Gen: severe respiratory distress Heart: tachycardic Lungs: crackles diffusely. tachypneic, increase WOB, increased use of accessory muscles, moaning in bed Abd: distended, suprapubic catheter in place Skin: mottling of skin on abdomen and b/l lower extremities Assessment: -Acute hypoxic respiratory failure possibly 2/2 aspiration Plan: -100% O2 nonrebreather -lasix 20mg IV push -morphine 2mg IV push stat x2 -ativan PRN -Molst form in chart, patient is DNR/DNI -family (sister) is being notified, unable to be at bedside - requesting REHABILITATION TECH -starting morphine ggt Labs: CBC, BMP 01/24/18 06:15 01/24/18 06:15 <Diallo Stein - Last Filed: 01/25/18 06:30> Physical Examination Vital Signs: Vital Signs Temperature 98.6 F 01/25/18 00:00 Pulse Rate 98 H 01/25/18 00:00 Respiratory Rate 20 01/25/18 00:00 Blood Pressure 122/76 01/25/18 00:00 O2 Sat by Pulse Oximetry (%) 93 L 01/24/18 21:00 Findings/Remarks: ADDENDUM - Family Proxy Sister wants Comfort care and pt. has MOLST form also stating he wants comfort - Mother is in Hospice and cannot be reached - Morphine gtt. ordered for comfort Labs: CBC, BMP 01/24/18 06:15 01/24/18 06:15
[2018-01-25] MEDS ORDERED: MORPHINE 100 MG in SODIUM CHLORIDE 98 ML IVPB SCH (04:30)
--- NOTE | 2018-01-25 07:39 | PN ---
Progress Note (short form) - Note Progress Note: Re-assessed. pt. appears comfortable on morphine gtt. RR 20, not moaning. not responding to verbal or tactile stimuli, not following commands. Sister (Mckenna Goel) called to provide update on brother's condition. Aware that pt's saturation declined overnight, not improving with non-invasive measures. As per MOLST form and sister, no further invasive measures needed. GOC is comfort as this point. She is aware he is comfort measures. She will try to come to bedside later in the day but may not be able to, would like phone updates if possible. Discussed with nursing to contact PCP, when PCP is available to update on patient's condition.
[2018-01-25 09:16] LABS: HEMATOCRIT 39.8 % (35.4-49); HEMOGLOBIN 13.7 GM/dL (11.7-16.9); MCH 33.5 pg (25.7-33.7); MCHC 34.4 g/dl (32.0-35.9); MEAN CELL VOLUME 97.2 fl (80-96); PLATELET COUNT 227 K/MM3 (134-434); WHITE BLOOD COUNT 12.8 K/mm3 (4.0-10.0)
[2018-01-25] MEDS: cloZAPine 100 MG TABLET PO SCH (09:41)
[2018-01-25] MEDS: risperiDONE 1 MG TABLET (FP) PO SCH (09:41)
[2018-01-25] MEDS: FOLIC ACID 1 MG TABLET (FP) PO SCH (09:41)
[2018-01-25] MEDS: VALPROIC ACID 250 MG CAPSULE PO SCH (09:41)
[2018-01-25] MEDS: ASPIRIN 81 MG CHEWABLE TABLETS PO SCH (09:41)
[2018-01-25 10:07] LABS: CHLORIDE 103 mmol/L (98-107); SODIUM 137 mmol/L (136-145)
--- NOTE | 2018-01-25 10:20 | PN ---
Progress Note (short form) - Note Progress Note: Events noted pt deteriorated last night- hypoxic and unresponsive labored breathing on Morphine gtt- sister aware Vitals noted S1 S2 RRR Lungs decreased Abd- soft, ND, BS+ no edema PLAN comfort care dc all po meds, antibiotics keep Morphine gtt Problem List - Problems (1) Sepsis Code(s): A41.9 - SEPSIS, UNSPECIFIED ORGANISM (2) Rhabdomyolysis Code(s): M62.82 - RHABDOMYOLYSIS (3) Acute kidney failure Code(s): N17.9 - ACUTE KIDNEY FAILURE, UNSPECIFIED (4) Altered mental status Code(s): R41.82 - ALTERED MENTAL STATUS, UNSPECIFIED Qualifiers: Altered mental status type: unspecified Qualified Code(s): R41.82 - Altered mental status, unspecified (5) Suprapubic catheter Code(s): Z93.59 - OTHER CYSTOSTOMY STATUS (6) UTI (urinary tract infection) Code(s): N39.0 - URINARY TRACT INFECTION, SITE NOT SPECIFIED Qualifiers: Urinary tract infection type: site unspecified Hematuria presence: with hematuria Qualified Code(s): N39.0 - Urinary tract infection, site not specified; R31.9 - Hematuria, unspecified; R31.9 - Hematuria, unspecified
[2018-01-25 10:31] LABS: ALBUMIN 2.9 g/dl (3.4-5.0); ALK PHOS 94 U/L (45-117); ANION GAP 15 (8-16); BILIRUBIN,TOTAL 0.5 mg/dL (0.2-1.0); BLOOD UREA NITROGEN 39 mg/dL (7-18); CALCIUM 8.6 mg/dL (8.5-10.1); CO2 19 mmol/L (21-32); GLUCOSE,RANDOM 98 mg/dL (74-106); SGOT/AST 98 U/L (15-37); SGPT/ALT 55 U/L (12-78); TOT PROT 6.9 g/dl (6.4-8.2)
[2018-01-25] MEDS: DORZOLAMIDE 2% HCL OPHTHALMIC SOLUTION 10 ML BOTTLE OU SCH (10:47)
[2018-01-25] MEDS: HEPARIN NA (PORCINE) 5,000 UNITS/ML 1ML VIAL SQ SCH (10:47)
[2018-01-25] MEDS ORDERED: ACETAMINOPHEN 1000 MG/100 ML VIAL (NON FORMULARY) IVPB PRN (10:47)
[2018-01-25] MEDS: CEFTRIAXONE 1 GM in DEXTROSE 5%-WATER - 50 ML IVPB SCH (10:47)
--- NOTE | 2018-01-25 13:07 | PN ---
Progress Note (short form) - Note Progress Note: Renal Follow up for NANNETTE Pt seen and examined at the bedside chart reviewed, overnight events noted pt noted to be hypoxic overnight give IV Lasix, made comfort care as per family s/p IV morphine and ativan pt lethargic this am on NRB face mask on IVF Vital Signs Temperature 101 F H 01/25/18 09:30 Pulse Rate 114 H 01/25/18 09:30 Respiratory Rate 23 01/25/18 09:30 Blood Pressure 89/63 01/25/18 09:30 O2 Sat by Pulse Oximetry (%) 93 L 01/24/18 21:00 Intake & Output 01/22/18 01/23/18 01/24/18 01/25/18 23:59 23:59 23:59 23:59 Intake Total 1999 775 612 Output Total 1099 1325 200 Balance 1999 -325 -713 -200 Weight 79.379 kg 80.921 kg NAD, sleeping No JVD RRR, No M/R CTA (anterior exam) No LE edema, clubbing or cyanosis Spann bag with yellow urine CBC, BMP 01/25/18 07:17 01/25/18 07:17 Current Medications Acetaminophen (Ofirmev Injection -) 1,000 mg IVPB Q6H PRN PRN Reason: FEVER Sodium Chloride (Normal Saline -) 1,000 mls @ 84 mls/hr IV ASDIR [facility] Last Admin: 01/24/18 23:42 Dose: 84 mls/hr Morphine Sulfate 100 mg/ (Sodium Chloride) 100 mls @ 1 mls/hr IVPB TITR [facility]; 1 MG/HR PRN Reason: Protocol Last Admin: 01/25/18 04:40 Dose: 1 mg/hr, 1 mls/hr Lorazepam (Ativan Injection -) 1 mg IVPUSH Q6H PRN PRN Reason: ANXIETY 62 year old gentleman with PMhx of Neurogenic Bladder s/p Supra-pubic catheter who presented with diaphoresis and AMS and found to have UTI and Rhabdomyolysis with NANNETTE. #Acute Renal Failure in setting of Rhabdomyolysis/UTI #Rhabdomyolysis #UTI/Sepsis #Hematuria #Obstructive Uropathy with Supra-pubic catheter pt is now comfort care/DNR/DNI will D/C IVF as it could potentially be aiding to SOB/Hypoxia no CXR done to show effusions or congestion continue supportive care will sign off at this time, if any change in status please call back thank you Kenny Weaver DO
--- NOTE | 2018-01-26 12:22 | PN ---
Progress Note, Physician Chief Complaint: pt fully awake and alert today ! denies any complaints confused but pleasant-- which is his baseline - Current Medication List Current Medications: Active Medications Acetaminophen (Ofirmev Injection -) 1,000 mg IVPB Q6H PRN PRN Reason: FEVER Ceftriaxone Sodium (Rocephin -) 1,000 mg IVPUSH DAILY [facility] Gemfibrozil (Lopid -) 600 mg PO BID@0700,1630 [facility] Lorazepam (Ativan Injection -) 1 mg IVPUSH Q6H PRN PRN Reason: ANXIETY Pantoprazole Sodium (Protonix -) 20 mg PO DAILY [facility] Polyethylene Glycol (Miralax (For Daily Use) -) 17 gm PO DAILY [facility] Valproate Sodium (Depakene -) 250 mg PO BID [facility] - Objective Vital Signs: Vital Signs Temperature 98.3 F 01/26/18 07:16 Pulse Rate 112 H 01/26/18 07:16 Respiratory Rate 20 01/26/18 09:00 Blood Pressure 123/77 01/26/18 07:16 O2 Sat by Pulse Oximetry (%) 93 L 01/24/18 21:00 Constitutional: Yes: No Distress, Calm Cardiovascular: Yes: Regular Rate and Rhythm Respiratory: Yes: Diminished Gastrointestinal: Yes: Normal Bowel Sounds, Soft, Other (suprapubic cath+). No : Tenderness Edema: No Labs: CBC, BMP 01/25/18 07:17 01/25/18 07:17 INR, PTT INR 1.22 (0.82-1.09) H 01/22/18 16:00 Problem List - Problems (1) Sepsis Code(s): A41.9 - SEPSIS, UNSPECIFIED ORGANISM (2) Rhabdomyolysis Code(s): M62.82 - RHABDOMYOLYSIS (3) Acute kidney failure Code(s): N17.9 - ACUTE KIDNEY FAILURE, UNSPECIFIED (4) Altered mental status Code(s): R41.82 - ALTERED MENTAL STATUS, UNSPECIFIED Qualifiers: Altered mental status type: unspecified Qualified Code(s): R41.82 - Altered mental status, unspecified (5) Suprapubic catheter Code(s): Z93.59 - OTHER CYSTOSTOMY STATUS (6) UTI (urinary tract infection) Code(s): N39.0 - URINARY TRACT INFECTION, SITE NOT SPECIFIED Qualifiers: Urinary tract infection type: site unspecified Hematuria presence: with hematuria Qualified Code(s): N39.0 - Urinary tract infection, site not specified; R31.9 - Hematuria, unspecified; R31.9 - Hematuria, unspecified Assessment/Plan restart IV fluids dc Morphine drip pt clinically better-- improved with fluids, antibiotics and discontinuing his psych meds decrease Depakote iv antibiotics check labs
[2018-01-26] MEDS ORDERED: cefTRIAXone SODIUM 1 GM VIAL ONE (14:06)
[2018-01-26] MEDS ORDERED: DEXTROSE 5%-WATER - 50 ML IVPB ONE (14:06)
[2018-01-26] MEDS: POLYETHYLENE GLYCOL 3350 119 GM BTL PO SCH (14:11)
[2018-01-26] MEDS: CEFTRIAXONE 1 GM in DEXTROSE 5%-WATER - 50 ML IVPB SCH (14:15)
[2018-01-26] MEDS ORDERED: GEMFIBROZIL 600 MG TABLET (FP) PO SCH (16:30)
[2018-01-26] MEDS ORDERED: VALPROATE SODIUM 250 MG/5 ML UNIT DOSE CUP PO SCH (22:00)
[2018-01-26] MEDS ORDERED: PT OWN MED DRAWER 7, Y5N ONE (22:48)
[2018-01-26] MEDS: SODIUM CHLORIDE 1,000 ML IV SCH (23:12)
[2018-01-26] MEDS: VALPROATE SODIUM 250 MG/5 ML UNIT DOSE CUP PO SCH (23:13)
[2018-01-27 08:58] LABS: HEMATOCRIT 34.7 % (35.4-49); HEMOGLOBIN 11.9 GM/dL (11.7-16.9); MCH 32.8 pg (25.7-33.7); MCHC 34.2 g/dl (32.0-35.9); MEAN CELL VOLUME 95.9 fl (80-96); MEAN PLT VOLUME 10.6 fl (7.5-11.1); PLATELET COUNT 177 K/MM3 (134-434); RBC 3.62 M/mm3 (4.00-5.60); RDW 13.8 % (11.9-15.9); WHITE BLOOD COUNT 9.4 K/mm3 (4.0-10.0)
[2018-01-27] MEDS ORDERED: cefTRIAXone SODIUM 1 GM VIAL ONE (09:19)
[2018-01-27] MEDS ORDERED: DEXTROSE 5%-WATER - 50 ML IVPB ONE (09:19)
[2018-01-27] MEDS ORDERED: PT OWN MED DRAWER 7, Y5N ONE (09:19)
[2018-01-27 09:26] LABS: ALBUMIN 2.3 g/dl (3.4-5.0); ANION GAP 12 (8-16); BLOOD UREA NITROGEN 36 mg/dL (7-18); CALCIUM 8.1 mg/dL (8.5-10.1); CHLORIDE 97 mmol/L (98-107); CO2 25 mmol/L (21-32); CREATININE 0.8 mg/dL (0.7-1.3); GLUCOSE,RANDOM 85 mg/dL (74-106); POTASSIUM 3.6 mmol/L (3.5-5.1); SGOT/AST 177 U/L (15-37); SGPT/ALT 134 U/L (12-78); SODIUM 134 mmol/L (136-145)
[2018-01-27] MEDS: POLYETHYLENE GLYCOL 3350 119 GM BTL PO SCH (09:28)
[2018-01-27] MEDS: CEFTRIAXONE 1 GM in DEXTROSE 5%-WATER - 50 ML IVPB SCH (09:29)
[2018-01-27] MEDS: VALPROATE SODIUM 250 MG/5 ML UNIT DOSE CUP PO SCH ×2 (09:29→22:39)
[2018-01-27] MEDS: PANTOPRAZOLE 20 MG TABLET (FP) PO SCH (09:29)
[2018-01-27 09:55] LABS: ALK PHOS 81 U/L (45-117); BILIRUBIN,TOTAL 0.7 mg/dL (0.2-1.0); TOT PROT 5.9 g/dl (6.4-8.2)
--- NOTE | 2018-01-27 10:50 | PN ---
Progress Note (short form) - Note Progress Note: Pt seen/ examined Chart reviewed Comfortable afebrile Vital Signs Temp 98.9 F 01/26/18 14:31 Pulse 107 H 01/26/18 14:31 Resp 18 01/26/18 21:00 BP 95/57 01/26/18 14:31 Pulse Ox 93 L 01/24/18 21:00 Intake & Output 01/26/18 01/26/18 01/27/18 11:59 23:59 11:59 Intake Total 4000 Output Total 500 1400 400 Balance -500 2600 -400 Intake: IV 2000 NS FLUIDS 2000 Oral 1999 Output: Urine 500 1400 400 Supra Pubic Tube 500 1400 400 Other: Voiding Method Indwelling Catheter Indwelling Catheter Bowel Movement No No Active Medications Acetaminophen (Ofirmev Injection -) 1,000 mg IVPB Q6H PRN PRN Reason: FEVER Ceftriaxone Sodium 1 gm/ (Dextrose) 50 mls @ 100 mls/hr IVPB DAILY [facility] Last Admin: 01/27/18 09:29 Dose: 100 mls/hr Sodium Chloride (Normal Saline -) 1,000 mls @ 100 mls/hr IV ASDIR [facility] Last Admin: 01/26/18 23:12 Dose: 100 mls/hr Lorazepam (Ativan Injection -) 1 mg IVPUSH Q6H PRN PRN Reason: ANXIETY Pantoprazole Sodium (Protonix -) 20 mg PO DAILY [facility] Last Admin: 01/27/18 09:29 Dose: 20 mg Polyethylene Glycol (Miralax (For Daily Use) -) 17 gm PO DAILY [facility] Last Admin: 01/27/18 09:28 Dose: 17 gm Valproate Sodium (Depakene -) 250 mg PO BID [facility] Last Admin: 01/27/18 09:29 Dose: 250 mg CBC, BMP 01/27/18 07:45 01/27/18 07:45 Microbiology 01/22/18 20:00 Blood Culture - Preliminary Blood - Peripheral Venous NO GROWTH OBTAINED AFTER 96 HOURS, INCUBATION TO CONTINUE FOR 1 DAYS. 01/22/18 20:00 Blood Culture - Preliminary Blood - Peripheral Venous NO GROWTH OBTAINED AFTER 96 HOURS, INCUBATION TO CONTINUE FOR 1 DAYS. 01/22/18 16:00 Urine Culture - Final Urine - Urine Spann Pseudomonas Aeruginosa Vr Ec Faecalis Streptococcus Viridans Physical Constitutional: Yes: No Distress, Comfortable Cardiovascular: Yes: Regular Rate and Rhythm Respiratory: Yes: Diminished at bases Gastrointestinal: Yes: Normal Bowel Sounds, Soft, Other (suprapubic cath+). No : Tenderness Edema: No Problem List - Problems (1) Sepsis Code(s): A41.9 - SEPSIS, UNSPECIFIED ORGANISM (2) Rhabdomyolysis Code(s): M62.82 - RHABDOMYOLYSIS (3) Acute kidney failure Code(s): N17.9 - ACUTE KIDNEY FAILURE, UNSPECIFIED (4) Altered mental status Code(s): R41.82 - ALTERED MENTAL STATUS, UNSPECIFIED Qualifiers: Altered mental status type: unspecified Qualified Code(s): R41.82 - Altered mental status, unspecified (5) Suprapubic catheter Code(s): Z93.59 - OTHER CYSTOSTOMY STATUS (6) UTI (urinary tract infection) Code(s): N39.0 - URINARY TRACT INFECTION, SITE NOT SPECIFIED Qualifiers: Urinary tract infection type: site unspecified Hematuria presence: with hematuria Qualified Code(s): N39.0 - Urinary tract infection, site not specified; R31.9 - Hematuria, unspecified; R31.9 - Hematuria, unspecified Assessment/Plan continue present care abx vre precautions will follow Discussed with nursing staff also. Problem List - Problems (1) Suprapubic catheter Code(s): Z93.59 - OTHER CYSTOSTOMY STATUS (2) UTI (urinary tract infection) Code(s): N39.0 - URINARY TRACT INFECTION, SITE NOT SPECIFIED Qualifiers: Urinary tract infection type: site unspecified Hematuria presence: with hematuria Qualified Code(s): N39.0 - Urinary tract infection, site not specified; R31.9 - Hematuria, unspecified; R31.9 - Hematuria, unspecified
[2018-01-27 11:08] LABS: ANISOCYTOSIS 1+; MACROCYTOSIS 1+; PLATELET ESTIMATE NORMAL
[2018-01-27] MEDS: SODIUM CHLORIDE 1,000 ML IV SCH (22:39)
[2018-01-28] MEDS ORDERED: ALBUTEROL SO4 2.5/IPRATROPIUM 0.5 INH SOL 3 ML VIAL.NEB. NEB ONE (05:20)
[2018-01-28 08:05] LABS: HEMATOCRIT 33.7 % (35.4-49); HEMOGLOBIN 11.4 GM/dL (11.7-16.9); MCH 32.8 pg (25.7-33.7); MCHC 33.9 g/dl (32.0-35.9); MEAN CELL VOLUME 96.9 fl (80-96); MEAN PLT VOLUME 10.3 fl (7.5-11.1); PLATELET COUNT 206 K/MM3 (134-434); RBC 3.48 M/mm3 (4.00-5.60); RDW 13.7 % (11.9-15.9)
[2018-01-28 08:33] LABS: CHLORIDE 103 mmol/L (98-107); POTASSIUM 3.4 mmol/L (3.5-5.1); SODIUM 139 mmol/L (136-145)
[2018-01-28 09:02] LABS: ALBUMIN 2.1 g/dl (3.4-5.0); ALK PHOS 78 U/L (45-117); ANION GAP 11 (8-16); BILIRUBIN,TOTAL 1.1 mg/dL (0.2-1.0); BLOOD UREA NITROGEN 22 mg/dL (7-18); CALCIUM 7.8 mg/dL (8.5-10.1); CO2 25 mmol/L (21-32); CREATININE 0.7 mg/dL (0.7-1.3); GLUCOSE,RANDOM 80 mg/dL (74-106); SGOT/AST 114 U/L (15-37); SGPT/ALT 96 U/L (12-78); TOT PROT 5.7 g/dl (6.4-8.2)
[2018-01-28] MEDS ORDERED: HALOPERIDOL LACTATE 5 MG/ML IM ONE (10:15)
[2018-01-28] MEDS ORDERED: DEXTROSE 5%-WATER - 50 ML IVPB ONE (10:18)
[2018-01-28] MEDS ORDERED: cefTRIAXone SODIUM 1 GM VIAL ONE (10:18)
[2018-01-28] MEDS: POLYETHYLENE GLYCOL 3350 119 GM BTL PO SCH (10:25)
[2018-01-28] MEDS: PANTOPRAZOLE 20 MG TABLET (FP) PO SCH (10:25)
[2018-01-28] MEDS ORDERED: PT OWN MED DRAWER 7, Y5N ONE ×2 (10:25→21:05)
[2018-01-28] MEDS: VALPROATE SODIUM 250 MG/5 ML UNIT DOSE CUP PO SCH ×2 (10:25→21:48)
[2018-01-28] MEDS: CEFTRIAXONE 1 GM in DEXTROSE 5%-WATER - 50 ML IVPB SCH (10:26)
--- NOTE | 2018-01-28 11:12 | PN ---
Progress Note (short form) - Note Progress Note: Pt seen/ examined fully awake but agitative concern of safety afebrile denies pain Vital Signs Temp 98.1 F 01/28/18 06:00 Pulse 93 H 01/28/18 06:00 Resp 20 01/28/18 06:00 BP 145/62 01/28/18 06:00 Pulse Ox 93 L 01/24/18 21:00 Intake & Output 01/27/18 01/27/18 01/28/18 11:59 23:59 11:59 Output Total 400 1400 1400 Balance -400 -1400 -1400 Output: Urine 400 1400 1400 Supra Pubic Tube 400 1400 1400 Other: Voiding Method Indwelling Catheter Indwelling Catheter Bowel Movement No No Active Medications Acetaminophen (Ofirmev Injection -) 1,000 mg IVPB Q6H PRN PRN Reason: FEVER Haloperidol (Haldol Injection (Fast Acting) -) 5 mg IM Q8H PRN PRN Reason: AGITATION Ceftriaxone Sodium 1 gm/ (Dextrose) 50 mls @ 100 mls/hr IVPB DAILY [facility] Last Admin: 01/28/18 10:26 Dose: 100 mls/hr Potassium Chloride/Dextrose/Sod Cl (D5-1/2ns+20 Meq Kcl -) 20 meq in 1,000 mls @ 100 mls/hr IV ASDIR [facility] Lorazepam (Ativan Injection -) 1 mg IVPUSH Q6H PRN PRN Reason: ANXIETY Last Admin: 01/28/18 05:03 Dose: 1 mg Pantoprazole Sodium (Protonix -) 20 mg PO DAILY [facility] Last Admin: 01/28/18 10:25 Dose: 20 mg Polyethylene Glycol (Miralax (For Daily Use) -) 17 gm PO DAILY [facility] Last Admin: 01/28/18 10:25 Dose: Not Given Valproate Sodium (Depakene -) 250 mg PO BID [facility] Last Admin: 01/28/18 10:25 Dose: 250 mg CBC, BMP 01/28/18 06:15 01/28/18 06:15 Microbiology 01/22/18 20:00 Blood Culture - Final Blood - Peripheral Venous NO GROWTH AFTER 5 DAYS INCUBATION 01/22/18 20:00 Blood Culture - Final Blood - Peripheral Venous NO GROWTH AFTER 5 DAYS INCUBATION Physical Constitutional: Yes: No Distress, awake/ Cardiovascular: Yes: Regular Rate and Rhythm Respiratory: Yes: Diminished at bases Gastrointestinal: Yes: Normal Bowel Sounds, Soft, Other (suprapubic cath+). No : Tenderness Edema: No Problem List - Problems (1) Sepsis Code(s): A41.9 - SEPSIS, UNSPECIFIED ORGANISM (2) Rhabdomyolysis Code(s): M62.82 - RHABDOMYOLYSIS (3) Acute kidney failure Code(s): N17.9 - ACUTE KIDNEY FAILURE, UNSPECIFIED (4) Altered mental status Code(s): R41.82 - ALTERED MENTAL STATUS, UNSPECIFIED Qualifiers: Altered mental status type: unspecified Qualified Code(s): R41.82 - Altered mental status, unspecified (5) Suprapubic catheter Code(s): Z93.59 - OTHER CYSTOSTOMY STATUS (6) UTI (urinary tract infection) Code(s): N39.0 - URINARY TRACT INFECTION, SITE NOT SPECIFIED Qualifiers: Urinary tract infection type: site unspecified Hematuria presence: with hematuria Qualified Code(s): N39.0 - Urinary tract infection, site not specified; R31.9 - Hematuria, unspecified; R31.9 - Hematuria, unspecified Assessment/Plan Discussed with nursing staff Melissa for agitation/ safety add seroquel continue present care abx vre precautions will follow Problem List - Problems (1) Suprapubic catheter Code(s): Z93.59 - OTHER CYSTOSTOMY STATUS (2) UTI (urinary tract infection) Code(s): N39.0 - URINARY TRACT INFECTION, SITE NOT SPECIFIED Qualifiers: Urinary tract infection type: site unspecified Hematuria presence: with hematuria Qualified Code(s): N39.0 - Urinary tract infection, site not specified; R31.9 - Hematuria, unspecified; R31.9 - Hematuria, unspecified
[2018-01-28] MEDS: D5-1/2NS+20 MEQ KCL - 20 MEQ/1,000 ML INFUS.BAG IV SCH ×2 (11:35→23:32)
--- NOTE | 2018-01-28 11:39 | PN ---
Progress Note, Physician Chief Complaint: The patient seen in his room. seems comfortable. History of Present Illness: 62 year old gentleman with PMhx of Neurogenic Bladder s/p Supra-pubic catheter who presented with diaphoresis and AMS and found to have UTI and Rhabdomyolysis with NANNETTE. Acute Renal Failure in setting of Rhabdomyolysis/UTI Rhabdomyolysis UTI/Sepsis Hematuria Obstructive Uropathy with Supra-pubic catheter Pt is now comfort care/DNR/DNI - Current Medication List Current Medications: Active Medications Acetaminophen (Ofirmev Injection -) 1,000 mg IVPB Q6H PRN PRN Reason: FEVER Haloperidol (Haldol Injection (Fast Acting) -) 5 mg IM Q8H PRN PRN Reason: AGITATION Ceftriaxone Sodium 1 gm/ (Dextrose) 50 mls @ 100 mls/hr IVPB DAILY [facility] Last Admin: 01/28/18 10:26 Dose: 100 mls/hr Potassium Chloride/Dextrose/Sod Cl (D5-1/2ns+20 Meq Kcl -) 20 meq in 1,000 mls @ 100 mls/hr IV [facility]IR [facility] Lorazepam (Ativan Injection -) 1 mg IVPUSH Q6H PRN PRN Reason: ANXIETY Last Admin: 01/28/18 05:03 Dose: 1 mg Pantoprazole Sodium (Protonix -) 20 mg PO DAILY [facility] Last Admin: 01/28/18 10:25 Dose: 20 mg Polyethylene Glycol (Miralax (For Daily Use) -) 17 gm PO DAILY [facility] Last Admin: 01/28/18 10:25 Dose: Not Given Quetiapine Fumarate (Seroquel -) 25 mg PO HS [facility] Valproate Sodium (Depakene -) 250 mg PO BID [facility] Last Admin: 01/28/18 10:25 Dose: 250 mg - Objective Vital Signs: Vital Signs Temperature 98.1 F 01/28/18 06:00 Pulse Rate 93 H 01/28/18 06:00 Respiratory Rate 20 01/28/18 06:00 Blood Pressure 145/62 01/28/18 06:00 O2 Sat by Pulse Oximetry (%) 93 L 01/24/18 21:00 Constitutional: Yes: Calm HENT: Yes: Normocephalic Cardiovascular: Yes: S1, S2 Respiratory: Yes: CTA Bilaterally Gastrointestinal: Yes: Normal Bowel Sounds Neurological: Yes: Alert Labs: CBC, BMP 01/28/18 06:15 01/28/18 06:15 INR, PTT INR 1.22 (0.82-1.09) H 01/22/18 16:00 Assessment/Plan 62 year old gentleman with PMhx of Neurogenic Bladder s/p Supra-pubic catheter who presented with diaphoresis and AMS and found to have UTI and Rhabdomyolysis with NANNETTE. pt is now comfort care/DNR/DNI. Renal functions at baseline. noted that the patient is on Comfort care. No further specific suggestions at this time. Thank you. Soha Fulton MD
[2018-01-28] MEDS: HALOPERIDOL LACTATE 5 MG/ML IM PRN ×2 (12:27→20:14)
[2018-01-28 12:34] LABS: PLATELET ESTIMATE NORMAL
[2018-01-28] MEDS: QUEtiapine FUMARATE 25 MG TABLET (FP) PO SCH (21:48)
[2018-01-29] MEDS ORDERED: cefTRIAXone SODIUM 1 GM VIAL ONE (09:23)
[2018-01-29] MEDS ORDERED: PT OWN MED DRAWER 7, Y5N ONE (09:23)
[2018-01-29] MEDS ORDERED: DEXTROSE 5%-WATER - 50 ML IVPB ONE (09:24)
[2018-01-29] MEDS: VALPROATE SODIUM 250 MG/5 ML UNIT DOSE CUP PO SCH ×2 (09:27→22:03)
[2018-01-29] MEDS: PANTOPRAZOLE 20 MG TABLET (FP) PO SCH (09:27)
[2018-01-29] MEDS: CEFTRIAXONE 1 GM in DEXTROSE 5%-WATER - 50 ML IVPB SCH (09:28)
[2018-01-29] MEDS: POLYETHYLENE GLYCOL 3350 119 GM BTL PO SCH (09:28)
[2018-01-29] MEDS: HALOPERIDOL LACTATE 5 MG/ML IM PRN ×2 (09:39→20:05)
[2018-01-29] MEDS: D5-1/2NS+20 MEQ KCL - 20 MEQ/1,000 ML INFUS.BAG IV SCH ×2 (10:27→22:04)
--- NOTE | 2018-01-29 11:09 | PN ---
Progress Note (short form) - Note Progress Note: Awake/ comfortable Denies pain. Overall looks ok but not eating well afebrile Vital Signs Temp 98.3 F 01/29/18 09:00 Pulse 107 H 01/29/18 09:00 Resp 20 01/29/18 09:00 BP 106/66 01/29/18 09:00 Pulse Ox 92 L 01/28/18 21:00 Intake & Output 01/28/18 01/28/18 01/29/18 11:59 23:59 11:59 Intake Total 3609 1100 Output Total 2400 4000 2000 Balance -2400 -391 -900 Intake: IV 959 1100 D5-1/2NS+20 MEQ KCL - 20 722 1100 meq In 1,000 ml @ 100 mls /hr IV ASDIR RAYNE Rx#: [id number] Normal Saline - 1,000 ml 237 @ 100 mls/hr IV ASDIR RAYNE Rx#:[id number] IVPB 50 Oral 2600 Output: Urine 2400 4000 2000 Supra Pubic Tube 2400 4000 2000 Other: Voiding Method Indwelling Catheter Indwelling Catheter Bowel Movement No Yes # Bowel Movements 3 Active Medications Acetaminophen (Ofirmev Injection -) 1,000 mg IVPB Q6H PRN PRN Reason: FEVER Haloperidol (Haldol Injection (Fast Acting) -) 5 mg IM Q8H PRN PRN Reason: AGITATION Last Admin: 01/29/18 09:39 Dose: 5 mg Ceftriaxone Sodium 1 gm/ (Dextrose) 50 mls @ 100 mls/hr IVPB DAILY RAYNE Last Admin: 01/29/18 09:28 Dose: 100 mls/hr Potassium Chloride/Dextrose/Sod Cl (D5-1/2ns+20 Meq Kcl -) 20 meq in 1,000 mls @ 100 mls/hr IV ASDIR RAYNE Last Admin: 01/29/18 10:27 Dose: 100 mls/hr Lorazepam (Ativan Injection -) 1 mg IVPUSH Q6H PRN PRN Reason: ANXIETY Last Admin: 01/29/18 00:05 Dose: 1 mg Pantoprazole Sodium (Protonix -) 20 mg PO DAILY RAYNE Last Admin: 01/29/18 09:27 Dose: 20 mg Polyethylene Glycol (Miralax (For Daily Use) -) 17 gm PO DAILY RAYNE Last Admin: 01/29/18 09:28 Dose: Not Given Quetiapine Fumarate (Seroquel -) 25 mg PO HS [facility] Last Admin: 01/28/18 21:48 Dose: 25 mg Valproate Sodium (Depakene -) 250 mg PO BID [facility] Last Admin: 01/29/18 09:27 Dose: 250 mg CBC, BMP 01/28/18 06:15 01/28/18 06:15 Physical Constitutional: Yes: No Distress, awake/ comfortable. Cardiovascular: Yes: Regular Rate and Rhythm Respiratory: Yes: Diminished at bases Gastrointestinal: Yes: Normal Bowel Sounds, Soft, Other (suprapubic cath+). No : Tenderness Edema: No Assessment/Plan clinically stable continue present care lfts better f/u labs calm. encourge eating will follow Problem List - Problems (1) Suprapubic catheter Code(s): Z93.59 - OTHER CYSTOSTOMY STATUS (2) UTI (urinary tract infection) Code(s): N39.0 - URINARY TRACT INFECTION, SITE NOT SPECIFIED Qualifiers: Urinary tract infection type: site unspecified Hematuria presence: with hematuria Qualified Code(s): N39.0 - Urinary tract infection, site not specified; R31.9 - Hematuria, unspecified; R31.9 - Hematuria, unspecified
[2018-01-29] MEDS: QUEtiapine FUMARATE 25 MG TABLET (FP) PO SCH (22:04)
[2018-01-30 07:18] LABS: HEMATOCRIT 32.6 % (35.4-49); HEMOGLOBIN 11.3 GM/dL (11.7-16.9); MCHC 34.7 g/dl (32.0-35.9); MEAN CELL VOLUME 95.1 fl (80-96); MEAN PLT VOLUME 9.1 fl (7.5-11.1); PLATELET COUNT 301 K/MM3 (134-434); RBC 3.43 M/mm3 (4.00-5.60); RDW 13.4 % (11.9-15.9); WHITE BLOOD COUNT 17.2 K/mm3 (4.0-10.0)
[2018-01-30 07:52] LABS: ALBUMIN 2.2 g/dl (3.4-5.0); ANION GAP 8 (8-16); BLOOD UREA NITROGEN 12 mg/dL (7-18); CALCIUM 7.7 mg/dL (8.5-10.1); CHLORIDE 109 mmol/L (98-107); CO2 25 mmol/L (21-32); CREATININE 0.8 mg/dL (0.7-1.3); GLUCOSE,RANDOM 81 mg/dL (74-106); POTASSIUM 3.7 mmol/L (3.5-5.1); SGOT/AST 117 U/L (15-37); SGPT/ALT 90 U/L (12-78); SODIUM 142 mmol/L (136-145)
[2018-01-30 07:55] LABS: ALK PHOS 84 U/L (45-117); BILIRUBIN,TOTAL 0.5 mg/dL (0.2-1.0); TOT PROT 5.4 g/dl (6.4-8.2)
[2018-01-30 10:27] LABS: PLATELET ESTIMATE NORMAL
[2018-01-30] MEDS ORDERED: PT OWN MED DRAWER 7, Y5N ONE ×2 (11:14→22:50)
[2018-01-30] MEDS ORDERED: DEXTROSE 5%-WATER - 50 ML IVPB ONE (11:15)
[2018-01-30] MEDS ORDERED: cefTRIAXone SODIUM 1 GM VIAL ONE (11:15)
[2018-01-30 12:12] VITALS: BMI 25.5
[2018-01-30] MEDS: POLYETHYLENE GLYCOL 3350 119 GM BTL PO SCH (12:37)
[2018-01-30] MEDS: VALPROATE SODIUM 250 MG/5 ML UNIT DOSE CUP PO SCH ×2 (12:37→22:53)
[2018-01-30] MEDS: PANTOPRAZOLE 20 MG TABLET (FP) PO SCH (12:37)
[2018-01-30] MEDS: CEFTRIAXONE 1 GM in DEXTROSE 5%-WATER - 50 ML IVPB SCH (12:38)
[2018-01-30] MEDS: D5-1/2NS+20 MEQ KCL - 20 MEQ/1,000 ML INFUS.BAG IV SCH ×2 (12:38→14:46)
--- NOTE | 2018-01-30 13:56 | PN ---
Progress Note (short form) - Note Progress Note: Awake/ comfortable Comfortable increased wbc today Vital Signs Temp 98 F 01/30/18 06:00 Pulse 104 H 01/30/18 06:00 Resp 20 01/30/18 06:00 BP 98/50 01/30/18 06:00 Pulse Ox 92 L 01/29/18 21:00 Intake & Output 01/29/18 01/30/18 01/30/18 23:59 11:59 23:59 Intake Total 1050 120 Output Total 1900 400 Balance -850 -280 Weight 178 lb Intake: IV 1000 D5-1/2NS+20 MEQ KCL - 20 1000 meq In 1,000 ml @ 100 mls /hr IV ASDIR RAYNE Rx#: [id number] IVPB 50 Oral 120 Output: Urine 1900 400 Supra Pubic Tube 1900 400 Other: Voiding Method Indwelling Catheter Indwelling Catheter Bowel Movement Yes # Bowel Movements 1 Height 5 ft 10 in Body Mass Index (BMI) 25.5 Active Medications Acetaminophen (Ofirmev Injection -) 1,000 mg IVPB Q6H PRN PRN Reason: FEVER Haloperidol (Haldol Injection (Fast Acting) -) 5 mg IM Q8H PRN PRN Reason: AGITATION Last Admin: 01/29/18 20:05 Dose: 5 mg Ceftriaxone Sodium 1 gm/ (Dextrose) 50 mls @ 100 mls/hr IVPB DAILY [facility] Last Admin: 01/30/18 12:38 Dose: 100 mls/hr Potassium Chloride/Dextrose/Sod Cl (D5-1/2ns+20 Meq Kcl -) 20 meq in 1,000 mls @ 100 mls/hr IV ASDIR RAYNE Last Admin: 01/30/18 12:38 Dose: Not Given Pantoprazole Sodium (Protonix -) 20 mg PO DAILY [facility] Last Admin: 01/30/18 12:37 Dose: 20 mg Polyethylene Glycol (Miralax (For Daily Use) -) 17 gm PO DAILY [facility] Last Admin: 01/30/18 12:37 Dose: Not Given Quetiapine Fumarate (Seroquel -) 25 mg PO HS [facility] Last Admin: 01/29/18 22:04 Dose: 25 mg Valproate Sodium (Depakene -) 250 mg PO BID [facility] Last Admin: 01/30/18 12:37 Dose: 250 mg CBC, BMP 01/30/18 05:35 01/30/18 05:35 Physical Constitutional: Yes: No Distress, awake/ comfortable. Cardiovascular: Yes: Regular Rate and Rhythm Respiratory: Yes: Diminished at bases Gastrointestinal: Yes: Normal Bowel Sounds, Soft, Other (suprapubic cath+). No : Tenderness Edema: No Assessment/Plan clinically stable continue present care lfts - slightly elevated increased wbcs f/u labs encourge eating will follow Problem List - Problems (1) Suprapubic catheter Code(s): Z93.59 - OTHER CYSTOSTOMY STATUS (2) UTI (urinary tract infection) Code(s): N39.0 - URINARY TRACT INFECTION, SITE NOT SPECIFIED Qualifiers: Urinary tract infection type: site unspecified Hematuria presence: with hematuria Qualified Code(s): N39.0 - Urinary tract infection, site not specified; R31.9 - Hematuria, unspecified; R31.9 - Hematuria, unspecified
[2018-01-30] MEDS: HALOPERIDOL LACTATE 5 MG/ML IM PRN ×2 (14:45→22:54)
[2018-01-30 18:52] LABS: ANION GAP 9 (8-16); BLOOD UREA NITROGEN 15 mg/dL (7-18); CALCIUM 7.7 mg/dL (8.5-10.1); CHLORIDE 106 mmol/L (98-107); CO2 24 mmol/L (21-32); CREATININE 0.8 mg/dL (0.7-1.3); GLUCOSE,RANDOM 92 mg/dL (74-106); POTASSIUM 3.8 mmol/L (3.5-5.1); SGOT/AST 93 U/L (15-37); SODIUM 139 mmol/L (136-145)
[2018-01-30 18:55] LABS: ALK PHOS 84 U/L (45-117); BILIRUBIN,TOTAL 0.4 mg/dL (0.2-1.0); SGPT/ALT 74 U/L (12-78); TOT PROT 5.4 g/dl (6.4-8.2)
[2018-01-30] MEDS: QUEtiapine FUMARATE 25 MG TABLET (FP) PO SCH (22:53)
[2018-01-31] MEDS: D5-1/2NS+20 MEQ KCL - 20 MEQ/1,000 ML INFUS.BAG IV SCH ×2 (03:30→19:30)
[2018-01-31 08:12] LABS: HEMATOCRIT 30.6 % (35.4-49); HEMOGLOBIN 10.6 GM/dL (11.7-16.9); MCHC 34.5 g/dl (32.0-35.9); MEAN CELL VOLUME 95.6 fl (80-96); MEAN PLT VOLUME 8.8 fl (7.5-11.1); PLATELET COUNT 332 K/MM3 (134-434); RBC 3.21 M/mm3 (4.00-5.60); RDW 13.5 % (11.9-15.9); WHITE BLOOD COUNT 12.5 K/mm3 (4.0-10.0)
[2018-01-31 08:51] LABS: ALBUMIN 1.9 g/dl (3.4-5.0); ALK PHOS 78 U/L (45-117); ANION GAP 10 (8-16); BILIRUBIN,TOTAL 0.5 mg/dL (0.2-1.0); BLOOD UREA NITROGEN 11 mg/dL (7-18); CALCIUM 7.7 mg/dL (8.5-10.1); CHLORIDE 108 mmol/L (98-107); CO2 24 mmol/L (21-32); CREATININE 0.6 mg/dL (0.7-1.3); GLUCOSE,RANDOM 87 mg/dL (74-106); POTASSIUM 3.9 mmol/L (3.5-5.1); SGOT/AST 64 U/L (15-37); SGPT/ALT 62 U/L (12-78); SODIUM 142 mmol/L (136-145); TOT PROT 5.1 g/dl (6.4-8.2)
[2018-01-31] MEDS ORDERED: DEXTROSE 5%-WATER - 50 ML IVPB ONE (10:20)
[2018-01-31] MEDS ORDERED: PT OWN MED DRAWER 7, Y5N ONE (10:20)
[2018-01-31] MEDS ORDERED: cefTRIAXone SODIUM 1 GM VIAL ONE (10:20)
[2018-01-31] MEDS: VALPROATE SODIUM 250 MG/5 ML UNIT DOSE CUP PO SCH (10:23)
[2018-01-31] MEDS: POLYETHYLENE GLYCOL 3350 119 GM BTL PO SCH (10:24)
[2018-01-31] MEDS: CEFTRIAXONE 1 GM in DEXTROSE 5%-WATER - 50 ML IVPB SCH (10:25)
[2018-01-31] MEDS: PANTOPRAZOLE 20 MG TABLET (FP) PO SCH (10:25)
[2018-01-31 12:46] LABS: PLATELET ESTIMATE ADEQUATE
--- NOTE | 2018-01-31 13:09 | DS ---
Physical Examination Vital Signs: Vital Signs Temperature 98.5 F 01/31/18 08:20 Pulse Rate 86 01/31/18 08:20 Respiratory Rate 20 01/31/18 08:20 Blood Pressure 106/59 01/31/18 08:20 O2 Sat by Pulse Oximetry (%) 96 01/30/18 21:00 Constitutional: Yes: No Distress, Calm Cardiovascular: Yes: Regular Rate and Rhythm Respiratory: Yes: CTA Bilaterally Gastrointestinal: Yes: Normal Bowel Sounds, Soft, Other (SPC). No: Tenderness Edema: No Labs: CBC, BMP 01/31/18 07:16 01/31/18 07:16 Discharge Summary Reason For Visit: AMS, UTI, SEPSIS Current Active Problems Acute kidney failure (Acute) Altered mental status (Acute) Rhabdomyolysis (Acute) Sepsis (Acute) Suprapubic catheter (Acute) UTI (urinary tract infection) (Acute) Hospital Course: Admitted for AMS, uti , sepsis seen by renal for acute renal failure and rhabdomyolysis On Iv fluids and antibiotics Suprapubic catheter changed by Pt became lethargic but recovered remarkably Psych meds adjusted CPK better Changed to PO antibiotics afebrile renal function better stable for dc to [facility] Pt is DNR Condition: Stable - Instructions [facility] - Home Medications Comprehensive Discharge Medication List: Ambulatory Orders Aspirin 81 mg PO DAILY 02/11/13 Clozapine [Clozaril (Nf) -] 300 mg PO DAILY 02/11/13 Clozapine [Clozaril (Nf) -] 400 mg PO HS 02/11/13 Folic Acid - 1 mg PO DAILY 02/11/13 Gemfibrozil [Lopid -] 600 mg PO BID@0700,1630 02/11/13 Risperidone [Risperdal] 1 mg PO DAILY 02/11/13 Valproic Acid [Depakene] 1,000 mg PO BID 02/11/13 Pantoprazole Sodium [Protonix] 20 mg PO DAILY 03/14/15 Cholecalciferol (Vitamin D3) [Optimal D3] 50,000 unit PO WEEKLY 01/22/18 Dextromethorphan HBr/Quinidine [Nuedexta 20-10 mg Capsule] 1 each PO BID Dorzolamide HCl [Trusopt 2%] 1 drop OU BID 01/22/18 Latanoprost 0.005% Eye Drops [Xalatan 0.005% Eye Drops -] 1 drop OU HS 01/22/18 Risperidone [Risperdal] 2 mg PO HS 01/22/18 Sennosides [Senna] 2 tab PO HS 01/22/18
[2018-01-31] MEDS: HALOPERIDOL LACTATE 5 MG/ML IM PRN (14:46)
[2018-01-31 14:47] VITALS: BP 106/56; PULSE 95; TEMP 97.4
== END 2018-01-31 20:15 | DRG 871 ==
LOC: JER 14:53 → JERBED 20:16 → J8W 01-23 01:37
PROVIDERS: ADMIT Internal Medicine; ATTEND Internal Medicine
DX: A41.9 Sepsis, unspecified organism (principal); G93.41 Metabolic encephalopathy; J96.01 Acute respiratory failure with hypoxia; N39.0 Urinary tract infection, site not specified; N17.9 Acute kidney failure, unspecified; E87.1 Hypo-osmolality and hyponatremia; M62.82 Rhabdomyolysis; I10 Essential (primary) hypertension; E78.5 Hyperlipidemia, unspecified; K21.9 Gastro-esophageal reflux disease without esophagitis; F20.9 Schizophrenia, unspecified; Z93.59 Other cystostomy status; R31.9 Hematuria, unspecified; N13.9 Obstructive and reflux uropathy, unspecified; R41.82 Altered mental status, unspecified; N31.9 Neuromuscular dysfunction of bladder, unspecified
CPT/HCPCS: 36415; 36600; 70450-TC; 71045-TC-FY; 80048; 80053; 80164; 81003; 81015; 82140; 82550; 82553; 82803; 82962; 83605; 83735; 84100; 85025; 85027; 85610; 85730; 87040; 87077; 87086; 87186; 93005; 93010; 94640; 99285-25; J1644; J2794; J7030; J7620

== ENCOUNTER 2018-02-01 05:37 | Emergency (ER) | payer OTHER ==
[2018-02-01 05:47] VITALS: BP 183/65; PULSE 100; TEMP 97.9
--- NOTE | 2018-02-01 05:51 | PDOC ---
History of Present Illness - History of Present Illness Initial Comments: 02/01/18 06:09 The patient is a 62 year old male with history of hypertension, hyperlipidemia, on ASA, who sent from [place] for a wound to his scalp s/p fall this morning. On evaluation, the patient denies any physical complaint. He is not oriented and unable to provide remainder of history. <Rosie Soto - Last Filed: 02/01/18 06:09> <Chris Cantu - Last Filed: 02/01/18 07:58> - General History Source: [facility] Records <Shay Stover - Last Filed: 02/01/18 19:32> - General Chief Complaint: Injury Stated Complaint: LACERATION Time Seen by Provider: 02/01/18 05:51 Past History <Rosie Soto - Last Filed: 02/01/18 06:09> <Chris Cantu - Last Filed: 02/01/18 07:58> - Past Medical History Anemia: No Asthma: No Cancer: No Cardiac Disorders: Yes (PVD) CVA: No COPD: No CHF: No Dementia: No Diabetes: No GI Disorders: Yes (GERD) Disorders: Yes (neurogenic bladder) HTN: Yes Hypercholesterolemia: Yes Liver Disease: No Seizures: No Thyroid Disease: No - Surgical History Abdominal Surgery: No Appendectomy: No Cardiac Surgery: No Cholecystectomy: No Lung Surgery: No Neurologic Surgery: No Orthopedic Surgery: No - Immunization History Immunization Up to Date: Yes - Suicide/Smoking/Psychosocial Hx Smoking Status: No Smoking History: Never smoked Have you smoked in the past 12 months: No Number of Cigarettes Smoked Daily: 0 Information on smoking cessation initiated: No Hx Alcohol Use: No Drug/Substance Use Hx: No Substance Use Type: None Hx Substance Use Treatment: No <Shay Stover - Last Filed: 02/01/18 19:32> - Past Medical History Allergies/Adverse Reactions: Allergies Allergy/AdvReac Type Severity Reaction Status Date / Time No Known Drug Allergies Allergy Verified 02/01/18 05:51 Home Medications: Ambulatory Orders Aspirin 81 mg PO DAILY 02/11/13 Folic Acid - 1 mg PO DAILY 02/11/13 Risperidone [Risperdal] 1 mg PO DAILY 02/11/13 Pantoprazole Sodium [Protonix] 20 mg PO DAILY 06/26/15 Cholecalciferol (Vitamin D3) [Optimal D3] 50,000 unit PO WEEKLY 01/22/18 Dextromethorphan HBr/Quinidine [Nuedexta 20-10 mg Capsule] 1 each PO BID Dorzolamide HCl [Trusopt 2% -] 1 drop OU BID 01/22/18 Latanoprost 0.005% Eye Drops [Xalatan 0.005% Eye Drops -] 1 drop OU HS 01/22/18 Risperidone [Risperdal] 2 mg PO HS 01/22/18 Sennosides [Senna] 2 tab PO HS 01/22/18 Cefuroxime Axetil [Ceftin -] 500 mg PO Q12H #10 tablet 01/31/18 Polyethylene Glycol 3350 [Miralax 119 gm Btl -] 17 gm PO DAILY #1 bottle Quetiapine Fumarate [Seroquel -] 25 mg PO HS #30 tablet 01/31/18 Valproate Sodium [Depakene -] 250 mg PO BID #30 cup 01/31/18 Review of Systems - Review of Systems Able to Perform ROS?: Yes Comments:: 02/01/18 06:12 Patient is not oriented and not able to provide ROS <Rosie Soto - Last Filed: 02/01/18 06:09> *Physical Exam - Vital Signs Last Vital Signs Temp Pulse Resp BP Pulse Ox 97.9 F 100 H 19 183/65 96 02/01/18 05:45 02/01/18 05:45 02/01/18 05:45 02/01/18 05:45 02/01/18 05:45 - Physical Exam Comments: 02/01/18 06:13 GENERAL: Awake, alert. Not oriented. In no acute distress. HEAD: No signs of trauma EYES: PERRLA, EOMI, sclera anicteric, conjunctiva clear ENT: Auricles normal inspection, hearing grossly normal, nares patent, oropharynx clear without exudates. Moist mucosa NECK: Normal ROM, supple, no lymphadenopathy, JVD, or masses LUNGS: Breath sounds equal, clear to auscultation bilaterally. No wheezes, and no crackles HEART: Regular rate and rhythm, normal S1 and S2, no murmurs, rubs or gallops ABDOMEN: Soft, nontender, normoactive bowel sounds. No guarding, no rebound. No masses EXTREMITIES: Normal range of motion, no edema. No clubbing or cyanosis. No cords, erythema, or tenderness NEUROLOGICAL: Cranial nerves II through XII grossly intact. Normal speech, gait deferred. Moving all extremities. Sensation intact throughout. SKIN: Warm, Dry, normal turgor. +Stellate laceration to the occipital scalp. <Rosei Soto - Last Filed: 02/01/18 06:09> - Vital Signs Last Vital Signs Temp Pulse Resp BP Pulse Ox 97.9 F 100 H 19 183/65 96 02/01/18 05:45 02/01/18 05:45 02/01/18 05:45 02/01/18 05:45 02/01/18 05:45 <Chris Cantu - Last Filed: 02/01/18 07:58> - Vital Signs Last Vital Signs Temp Pulse Resp BP Pulse Ox 97.9 F 100 H 19 183/65 96 02/01/18 05:45 02/01/18 05:45 02/01/18 05:45 02/01/18 05:45 02/01/18 05:45 <Shay Stover - Last Filed: 02/01/18 19:32> Procedures - Laceration/Wound Repair Upper Posterior Head Wound Length: 2.6 to 5.0 cm Wound Explored: clean, no foreign body present Wound's Depth, Shape: superficial, irregular, stellate Irrigated w/ Saline: Yes Betadine Prep: No Wound Debrided: moderate Wound Repaired With: [place] Layer Closure: No Progress: 02/01/18 07:59 10 kolby applied <Chris Cantu - Last Filed: 02/01/18 07:58> ED Treatment Course - Medications Given in the ED: ED Medications Discontinued Medications Generic Name Dose Route Start Last Admin Trade Name Freq PRN Reason Stop Dose Admin Lorazepam 2 mg 02/01/18 06:06 02/01/18 06:16 Ativan Injection - IM 02/01/18 06:07 2 mg ONCE ONE Administration <Chris Cantu - Last Filed: 02/01/18 07:58> *DC/Admit/Observation/Transfer - Attestations Scribe Attestion: 02/01/18 06:15 Documentation prepared by Rosie Soto, acting as medical clinic manager for Shay Stover DO. <Rosie Soto - Last Filed: 02/01/18 06:09> <Chris Cantu - Last Filed: 02/01/18 07:58> - Discharge Dispostion Decision to Admit order: No <Shay Stover - Last Filed: 02/01/18 19:32> Diagnosis at time of Disposition: Laceration of head, Fall - Discharge Dispostion Disposition: ASSISTED FACILITY Condition at time of disposition: Stable - Referrals Referrals: Tye Bruce MD [Staff Physician] - Jasmin Liang MD [Primary Care Provider] - - Patient Instructions Printed Discharge Instructions: DI for Laceration Repair -- [place], How to Prevent Falls, DI for Closed Head Injury Additional Instructions: Please follow up with your PMD for further eval. Please return to the ED with any further concerns. - Post Discharge Activity
[2018-02-01] MEDS ORDERED: DIPHTH,PERTUSS(ACELL),TET 0.5 ML DISP.SYRIN IM ONE (07:37)
--- NOTE | 2018-02-01 07:37 | PDOC ---
*Physical Exam - Vital Signs Last Vital Signs Temp Pulse Resp BP Pulse Ox 97.9 F 100 H 19 183/65 96 02/01/18 05:45 02/01/18 05:45 02/01/18 05:45 02/01/18 05:45 02/01/18 05:45 - Physical Exam Comments: 02/01/18 07:34 Gen: sleeping, easily arousable head: stellate lac to back of head neck: supple, no midline ttp, FROM of cervical spine, no step offs or deformities heart: +s1s2 reg Lungs: cta b/l abd: soft, nt/nd +bs Ext: small abrasion to L knee, no bleeding, FROM of UE and LE, radial and pedal pulses intact ED Treatment Course - Medications Given in the ED: ED Medications Discontinued Medications Generic Name Dose Route Start Last Admin Trade Name Freq PRN Reason Stop Dose Admin Lorazepam 2 mg 02/01/18 06:06 02/01/18 06:16 Ativan Injection - IM 02/01/18 06:07 2 mg ONCE ONE Administration Medical Decision Making - Medical Decision Making 02/01/18 07:35 a/p: 62yo male with hx of bipolar, htn, pvd, schizophrenia with head laceration - sent from [place] pt signed out from the prior ED attending pending head and c spine ct resident placed kolby to back of head 02/01/18 08:45 re-eval: head ct and c spine ct without acute findings pt moving all extremities denies wanting breakfast awake, after receiving ativan last night stable for d/c back to facility. 02/01/18 08:47 next of kin - Mckenna Goel updated on results. 02/01/18 08:51 pt with urine leaking around suprapubic catheter 02/01/18 08:[address] Anna Foster for further eval 02/01/18 09:25 case discussed w urology who recommends deflating the balloon and advancing it. this was done, no longer leaking around the suprapubic tube and clear urine draining. 02/01/18 09:46 re-eval: after advancing his suprapubic catheter now only draining into the bag and not around the tube pt requesting to go back to the facility stable for d/c to home *DC/Admit/Observation/Transfer Diagnosis at time of Disposition: Laceration of head, Fall - Discharge Dispostion Disposition: [facility] Condition at time of disposition: Stable Decision to Admit order: No - Referrals Referrals: Jasmin Liang MD [Primary Care Provider] - Tye Bruce MD [Staff Physician] - - Patient Instructions Printed Discharge Instructions: DI for Laceration Repair -- [place], How to Prevent Falls, DI for Closed Head Injury Additional Instructions: Please follow up with your PMD for further eval. Please return to the ED with any further concerns. - Post Discharge Activity - Attestations Physician Attestion: 02/01/18 08:47 I, Dr. Sophia Meehan, DO, attest that this document has been prepared under my direction and personally reviewed by me in its entirety. I further attest, that it accurately reflects all work, treatment, procedures and medical decision -making performed by me.
== END 2018-02-01 10:34 ==
LOC: JER 05:37
PROC: 0HQ0XZZ Repair Scalp Skin, External Approach (ICD-10-PCS; principal; 2018-02-01)
PROC: 3E0234Z Introduction of Serum, Toxoid and Vaccine into Muscle, Percutaneous Approach (ICD-10-PCS; 2018-02-01)
PROC: 3E023GC Introduction of Other Therapeutic Substance into Muscle, Percutaneous Approach (ICD-10-PCS; 2018-02-01)
DX: S01.01XA Laceration without foreign body of scalp, initial encounter (principal); W18.39XA Other fall on same level, initial encounter; Y93.89 Activity, other specified; Y92.129 Unspecified place in nursing home as the place of occurrence of the external cause; I10 Essential (primary) hypertension; E78.00 Pure hypercholesterolemia, unspecified; K21.9 Gastro-esophageal reflux disease without esophagitis; I73.9 Peripheral vascular disease, unspecified
CPT/HCPCS: 12001; 70450-TC; 72125-TC; 90471; 90715; 96372; 99283-25

== ENCOUNTER 2018-06-12 07:04 | Day surgery (SDC) | payer OTHER ==
[2018-06-12 08:28] VITALS: TEMP 97.9
[2018-06-12] MEDS ORDERED: PROPOFOL 20 ML ONE ×2 (10:11)
[2018-06-12] MEDS ORDERED: LIDOCAINE HCL/PF 2% SDV 5ML VIAL ONE (10:11)
--- NOTE | 2018-06-12 10:52 | OP ---
Operative Note - Note: Operative Date: 06/12/18 Pre-Operative Diagnosis: Bladder neck obstruction Operation: Suprapubic tube exchange Post-Operative Diagnosis: Same as Pre-op Surgeon: Tye Bruce Anesthesia: Fractional Estimated Blood Loss (mls): 0 Operative Report Dictated: Yes
[2018-06-12 13:35] VITALS: PULSE 64
[2018-06-12 13:39] VITALS: BP 96/68
--- NOTE | 2018-06-12 22:40 | OP ---
DATE OF OPERATION: 06/12/2018 PREOPERATIVE DIAGNOSIS: Bladder neck obstruction and neurogenic bladder. POSTOPERATIVE DIAGNOSIS: Bladder neck obstruction and neurogenic bladder. PROCEDURE: Suprapubic tube exchange. ANESTHESIA: Fractional. ATTENDING: Manjit Bruce M.D. DESCRIPTION OF PROCEDURE: Patient was brought in the operating room, placed in the supine position on the operating room table. Anesthesia was administered. At this point the suprapubic tube is removed. The balloon is initially deflated and a 26 [place] catheter is taken out. At this point the patient had placement with another 26 Mong[place]ian Spann catheter. The balloon was filled with 10 mL. There were no complications noted. The catheter was irrigated and was noted to be in the proper position. DISPOSITION: Patient to recovery room. MANJIT RAMOS M.D. [id number]
--- NOTE | 2018-06-13 13:56 | PATH ---
Surgical Pathology Report Patient Name: ALVA SINGH [facility]. Rec. #: [id number] /Age/Gender: 1955 (Age: 62) / M Account: [id number] Location: U SURGICAL Taken: 06/12/2018 Received: 06/12/2018 Reported: 06/13/2018 Physicians: Tye Bruce Specimen(s) Received REMOVED SUPRAPUBIC TUBE Clinical History Neuromuscular dysfunction bladder Final Diagnosis SUPRAPUBIC TUBE, REMOVAL: URINARY CATHETER. MACROSCOPIC DIAGNOSIS. Electronically Signed Viri Elizabeth M.D. Gross Description Received fresh labeled "suprapubic tube" is a robin catheter consistent with a urinary (Spann) catheter, which measures 40 cm in length and 1 cm in diameter. No soft tissue present, for gross only. MLSZ/06/12/2018 sanml/06/12/2018
== END 2018-06-12 13:00 ==
LOC: JASU-SURG 07:04
PROVIDERS: ATTEND Urology
PROC: 0T9B30Z Drainage of Bladder with Drainage Device, Percutaneous Approach (ICD-10-PCS; principal; 2018-06-12 09:00)
DX: N32.0 Bladder-neck obstruction (principal); N31.9 Neuromuscular dysfunction of bladder, unspecified
CPT/HCPCS: 88300-TC

== ENCOUNTER 2018-07-02 08:57 | Emergency (ER) | payer OTHER ==
[2018-07-02 09:13] VITALS: TEMP 98; BMI 28.7
--- NOTE | 2018-07-02 10:20 | PDOC ---
History of Present Illness - General History Source: Patient Exam Limitations: No Limitations - History of Present Illness Initial Comments: 07/02/18 10:20 The patient is a 62 year old male, with a significant PMH of hypertension, hyperlipidemia, GERD, schizophrenia, and neurogenic bladder, who presents to the emergency department via ambulance from [facility] with his urinary catheter falling out. The patient denies dysuria, frequency, urgency and hematuria. Denies fever, chills, nausea, vomit, diarrhea and constipation.The patient denies any pain. Allergies: NKDA Past surgical history: None reported Social history: None reported PCP: Garth Castellanos <Wesley Fulton - Last Filed: 07/02/18 11:22> <Filiberto Sidhu - Last Filed: 07/05/18 19:59> - General Stated Complaint: CATHETER PROBLEM Time Seen by Provider: 07/02/18 09:47 Past History <Wesley Fulton - Last Filed: 07/02/18 11:22> - Past Medical History Anemia: No Asthma: No Cancer: No Cardiac Disorders: Yes (PVD) CVA: No COPD: No CHF: No DVT: Yes Dementia: Yes Diabetes: No GI Disorders: Yes (GERD) Disorders: Yes (neurogenic bladder, s/p catheter, UTI) HTN: Yes Hypercholesterolemia: Yes Liver Disease: No Psychiatric Problems: Yes (Schizophrenia, bipolar) Seizures: No Thyroid Disease: No - Surgical History Abdominal Surgery: No Appendectomy: No Cardiac Surgery: No Cholecystectomy: No Lung Surgery: No Neurologic Surgery: No Orthopedic Surgery: No - Immunization History Immunization Up to Date: Yes - Suicide/Smoking/Psychosocial Hx Smoking Status: No Smoking History: Former smoker Have you smoked in the past 12 months: No Number of Cigarettes Smoked Daily: 0 Information on smoking cessation initiated: No Hx Alcohol Use: No Drug/Substance Use Hx: No Substance Use Type: None Hx Substance Use Treatment: No <Filiberto Sidhu - Last Filed: 07/05/18 19:59> - Past Medical History Allergies/Adverse Reactions: Allergies Allergy/AdvReac Type Severity Reaction Status Date / Time No Known Drug Allergies Allergy Verified 02/01/18 05:51 Home Medications: Ambulatory Orders Acetaminophen 325 mg PO PRN 07/02/18 Aspirin 81 mg PO DAILY 07/02/18 Cholecalciferol (Vitamin D3) [D3-50] 50,000 unit PO WEEKLY 07/02/18 Dextromethorphan HBr/Quinidine [Nuedexta 20-10 mg Capsule] 1 each PO BID Dorzolamide HCl/Pf [Dorzolamide 2% Eye Drop] 1 drop OS BID 07/02/18 Lactobacillus Acidophilus [Bacid -] 1 each PO DAILY 07/02/18 Latanoprost 0.005% Eye Drops [Xalatan 0.005% Eye Drops -] 1 drop HS 07/02/18 Pantoprazole Sodium [Protonix -] 20 mg PO DAILY 07/02/18 Polyethylene Glycol 3350 [Miralax (For Daily Use) -] 17 gm PO DAILY 07/02/18 Quetiapine Fumarate [Seroquel -] 25 mg PO HS 07/02/18 Risperidone [Risperdal] 1 mg PO DAILY 07/02/18 Risperidone [Risperdal] 2 mg PO HS 07/02/18 Sennosides [Senna] 8.6 mg PO HS 07/02/18 Valproic Acid [Depakene] 250 mg PO TID 07/02/18 Amoxicillin - [Amoxicillin 500mg Capsule -] 500 mg PO BID #14 capsule 07/05/18 Levofloxacin [Levaquin] 750 mg PO DAILY #5 tablet 07/05/18 Review of Systems - Review of Systems Able to Perform ROS?: Yes Comments:: 07/02/18 10:21 GENERAL/CONSTITUTIONAL: No fever or chills. No weakness. HEAD, EYES, EARS, NOSE AND THROAT: No change in vision. No ear pain or discharge. No sore throat. CARDIOVASCULAR: No chest pain or shortness of breath. RESPIRATORY: No cough, wheezing, or hemoptysis. GASTROINTESTINAL: No nausea, vomiting, diarrhea or constipation. GENITOURINARY: No dysuria, frequency, or change in urination. MUSCULOSKELETAL: No joint or muscle swelling or pain. No neck or back pain. SKIN: No rash NEUROLOGIC: No headache, vertigo, loss of consciousness, or change in strength/ sensation. ENDOCRINE: No increased thirst. No abnormal weight change. HEMATOLOGIC/LYMPHATIC: No anemia, easy bleeding, or history of blood clots. ALLERGIC/IMMUNOLOGIC: No hives or skin allergy. <Wesley Fulton - Last Filed: 07/02/18 11:22> *Physical Exam - Vital Signs Last Vital Signs Temp Pulse Resp BP Pulse Ox 98 F 65 18 121/75 99 07/02/18 09:04 07/02/18 09:04 07/02/18 09:04 07/02/18 09:04 07/02/18 09:04 - Physical Exam Comments: 07/02/18 10:21 GENERAL: Awake, alert, and fully oriented, in no acute distress HEAD: No signs of trauma EYES: PERRLA, EOMI, sclera anicteric, conjunctiva clear LUNGS: Breath sounds equal, clear to auscultation bilaterally. No wheezes, and no crackles HEART: Regular rate and rhythm, normal S1 and S2, no murmurs, rubs or gallops ABDOMEN: Soft, nontender, normoactive bowel sounds. No guarding, no rebound. No masses GI: +Suprapubic catheter, clean dry and intact, missing catheter EXTREMITIES: Normal range of motion, no edema. No clubbing or cyanosis. No cords, erythema, or tenderness NEUROLOGICAL: Cranial nerves II through XII grossly intact. Normal speech, normal gait SKIN: Warm, Dry, normal turgor, no rashes or lesions noted. <Wesley Fulton - Last Filed: 07/02/18 11:22> - Vital Signs Last Vital Signs Temp Pulse Resp BP Pulse Ox 98 F 65 18 121/75 99 07/02/18 09:04 07/02/18 09:04 07/02/18 09:04 07/02/18 09:04 07/02/18 09:04 - Physical Exam Comments: 07/05/18 19:59 Correction to scribe note. I did not test gait on this patient. <Filiberto Sidhu - Last Filed: 07/05/18 19:59> Medical Decision Making - Medical Decision Making 07/02/18 11:20 A portion of this note was documented by scribe services under my direction. I have reviewed the details of the note, within reason, and agree with the documentation with the following case summary and management plan written by me. Patient treated in the ED. Nursing notes are reviewed and incorporated into the medical decision-making. Vital signs reviewed. Vital Signs Temp Pulse Resp BP Pulse Ox 98 F 65 18 121/75 99 07/02/18 09:04 07/02/18 09:04 10/14/18 09:04 07/02/18 09:04 07/02/18 09:04 This is a 62-year-old male with history of neurogenic bladder and multiple other medical process. Patient was sent from [facility] given that the urinary catheter fell out. The patient currently has no complaints and feels well. Patient was noted to have a 26 Icelandic at the [facility]. A 24 Icelandic catheter was inserted without difficulty. There is urine output. We'll obtain a urinalysis to rule out urinary tract infection. If the workup is unremarkable, the patient can be discharged back to [facility]. 07/02/18 12:54 UA shows 3+ leuk and 34 WBC. However, after talking with Dr. Liang, given no fever and no pain and otherwise well-appearing, we suspect patient is likely a chronic colonizer. Will await for urine culture results and hold off from antibiotics. Will send patient [facility] to [facility]. <Filiberto Sidhu - Last Filed: 07/05/18 19:59> *DC/Admit/Observation/Transfer - Attestations Scribe Attestion: 07/02/18 10:22 Documentation prepared by Wesley Fulton, acting as medical/surgery registered nurse for Filiberto Sidhu MD. <Wesley Fulton - Last Filed: 07/02/18 11:22> - Discharge Dispostion Decision to Admit order: No <Filiberto Sidhu - Last Filed: 07/05/18 19:59> Diagnosis at time of Disposition: Suprapubic catheter - Discharge Dispostion Disposition: [facility] FACILITY Condition at time of disposition: Stable - Prescriptions Prescriptions: Amoxicillin - [Amoxicillin 500mg Capsule -] 500 mg PO BID #14 capsule Levofloxacin [Levaquin] 750 mg PO DAILY #5 tablet - Referrals Referrals: Jasmin Liang MD [Primary Care Provider] - - Patient Instructions Printed Discharge Instructions: How to Care for a Suprapubic Catheter Additional Instructions: A 24 Icelandic catheter (with 20cc of NS in the balloon) was successfully placed in the suprapubic catheter. Please follow up with Dr. Liang. - Post Discharge Activity
[2018-07-02 11:23] LABS: URINE APPEARANCE CLOUDY; URINE BILIRUBIN NEGATIVE (<2.0 mg/dL); URINE COLOR YELLOW; URINE GLUCOSE (UA) NEGATIVE (NEGATIVE); URINE KETONE NEGATIVE (NEGATIVE); URINE LEUK ESTERASE 3+ (NEGATIVE); URINE NITRITE NEGATIVE (NEGATIVE); URINE PROTEIN NEGATIVE (NEGATIVE); URINE UROBILINOGEN NEGATIVE mg/dL (0.2-1.0)
[2018-07-02 11:42] LABS: EPI CELLS RARE /HPF (FEW); URINE BACTERIA RARE /hpf (NONE SEEN); URINE MUCUS RARE
[2018-07-02 13:26] VITALS: BP 116/69; PULSE 81
== END 2018-07-02 14:55 ==
LOC: JER 08:57
PROC: 0T2BX0Z Change Drainage Device in Bladder, External Approach (ICD-10-PCS; principal; 2018-07-02)
DX: T83.020A Displacement of cystostomy catheter, initial encounter (principal); N31.9 Neuromuscular dysfunction of bladder, unspecified; I10 Essential (primary) hypertension; E78.5 Hyperlipidemia, unspecified; K21.9 Gastro-esophageal reflux disease without esophagitis; F20.9 Schizophrenia, unspecified; F31.9 Bipolar disorder, unspecified; I73.9 Peripheral vascular disease, unspecified; Z86.718 Personal history of other venous thrombosis and embolism
CPT/HCPCS: 51702; 81003; 81015; 87086; 87186; 99282-25

== ENCOUNTER 2018-07-22 09:23 | Emergency (ER) | payer OTHER ==
[2018-07-22 09:47] VITALS: TEMP 98.4; BMI 28.5
--- NOTE | 2018-07-22 10:03 | PDOC ---
History of Present Illness - General Chief Complaint: Urinary Catheter Problem Stated Complaint: CATHETER PROBLEM Time Seen by Provider: 07/22/18 09:48 History Source: Patient Exam Limitations: No Limitations - History of Present Illness Initial Comments: 07/22/18 10:24 [place] 62 year old male, with a significant PMH of hypertension, hyperlipidemia, GERD, schizophrenia, and neurogenic bladder, who presents to the emergency department via ambulance from [facility] with dislodged suprapubic catheter. The patient denies dysuria, frequency, urgency and hematuria. Denies fever, chills, nausea, vomit, diarrhea and constipation.The patient denies any pain. Per nursing report, usually usually 24-[address] Jasmin Liang = PMD 07/22/18 10:26 Past History - Past Medical History Allergies/Adverse Reactions: Allergies Allergy/AdvReac Type Severity Reaction Status Date / Time No Known Drug Allergies Allergy Verified 07/22/18 09:47 Home Medications: Ambulatory Orders Acetaminophen 325 mg PO PRN 07/02/18 Aspirin 81 mg PO DAILY 07/02/18 Cholecalciferol (Vitamin D3) [D3-50] 50,000 unit PO WEEKLY 07/02/18 Dextromethorphan HBr/Quinidine [Nuedexta 20-10 mg Capsule] 1 each PO BID Dorzolamide HCl/Pf [Dorzolamide 2% Eye Drop] 1 drop OS BID 07/02/18 Lactobacillus Acidophilus [Bacid -] 1 each PO DAILY 07/02/18 Latanoprost 0.005% Eye Drops [Xalatan 0.005% Eye Drops -] 1 drop HS 07/02/18 Pantoprazole Sodium [Protonix -] 20 mg PO DAILY 07/02/18 Polyethylene Glycol 3350 [Miralax (For Daily Use) -] 17 gm PO DAILY 07/02/18 Quetiapine Fumarate [Seroquel -] 25 mg PO HS 07/02/18 Risperidone [Risperdal] 1 mg PO DAILY 07/02/18 Risperidone [Risperdal] 2 mg PO HS 07/02/18 Sennosides [Senna] 8.6 mg PO HS 07/02/18 Valproic Acid [Depakene] 250 mg PO TID 07/02/18 Anemia: No Asthma: No Cancer: No Cardiac Disorders: Yes (PVD) CVA: No COPD: No CHF: No DVT: Yes Dementia: Yes Diabetes: No GI Disorders: Yes (GERD) Disorders: Yes (neurogenic bladder, s/p catheter, UTI) HTN: Yes Hypercholesterolemia: Yes Liver Disease: No Psychiatric Problems: Yes (Schizophrenia, bipolar) Seizures: No Thyroid Disease: No - Surgical History Abdominal Surgery: No Appendectomy: No Cardiac Surgery: No Cholecystectomy: No Lung Surgery: No Neurologic Surgery: No Orthopedic Surgery: No - Immunization History Immunization Up to Date: Yes - Suicide/Smoking/Psychosocial Hx Smoking Status: No Smoking History: Unknown if ever smoked Have you smoked in the past 12 months: No Number of Cigarettes Smoked Daily: 0 Hx Alcohol Use: No Drug/Substance Use Hx: No Substance Use Type: None Hx Substance Use Treatment: No Review of Systems - Review of Systems Able to Perform ROS?: Yes Comments:: 07/22/18 10:05 Constitutional: no fevers or chills. HEENT: no headache or dizziness. No congestion. No visual/hearing disturbances. CVS: no cp or syncope. Resp: no sob. No cough. Abdomen: no abdominal pain, nausea or vomiting. Genitourinary: no urinary sx, hematuria. MUSCULOSKELETAL: No joint pain and swelling. No neck or back pain. SKIN: no redness or skin changes, no discharge, no rash. No wounds. Hematologic: no easy bruising/bleeding. NEUROLOGIC: No headache, dizziness, LOC or altered mental status. No weakness, numbness or tingling. All other systems reviewed and negative, or as documented in HPI. *Physical Exam - Vital Signs Last Vital Signs Temp Pulse Resp BP Pulse Ox 98.4 F 74 18 90/47 L 97 07/22/18 09:30 07/22/18 09:30 07/22/18 09:30 07/22/18 09:30 07/22/18 09:30 - Physical Exam Comments: 07/22/18 10:05 General: Well appearing, awake and alert, NAD. HEENT: NCAT, PERRL, EOMI, clear conjunctiva, anicteric, moist mucus membranes, clear oropharynx, no oral lesions.. Neck: neck supple, FROM Resp: CTAB, normal and even respirations, no respiratory distress CVS: RRR, no murmurs, 2+ peripheral pulses throughout, no peripheral edema Abdomen: soft, NTND, no peritoneal signs. no CVAT. +lower suprapubic site, stoma c/d, no purulence, Back: nontender, normal inspection and ROM MSK: no edema, RAMIREZ x4, ROM intact. No clubbing or cyanosis. normal bulk and tone. Extrem: no calf tenderness Neuro: alert, oriented appropriately; no focal neurologic deficits Skin: warm and well perfused, cap refill <2 sec, normal color Medical Decision Making - Medical Decision Making 07/22/18 11:15 62 YOM with catheter dislodgement, for neurogenic bladder. Vital signs reviewed, mild hypotension noted, but pt does not appear dehydrated or toxic or symptomatic, actually well appearing w/o pain. Will repeat, which is 98/68, which is similar to his prior blood pressure measurements. A 24 Chilean catheter was inserted without difficulty. There is copious clear urine output. urinalysis to rule out urinary tract infection. If the workup is unremarkable, the [facility] daigle catheter care. Prior notes and micro bio with E. faecalis, morganella, strep viridans, pseudomonas. Todays UA prelim negative, follow up on urine cultures which is appropriate and defer treating with abx (just finished his levaquin and amoxicillin from prior visit 07/02/18, and with chronic catheter most likely also chronic colonizer). Spoke and updated Dr. Aline Liang, spoke with Dr. Alfaro corrosion engineer, agree with impression and plan, hold abx until urine cx to be followed up. Pt to be discharged in stable condition back to [facility] with new bag and suprapubic catheter.. Patient made aware of impression and plan, return precautions discussed (including but not limited to worsening pain or symptoms) , fevers, or signs of infection, chest pain, respiratory distress, inability to tolerate oral intake, dehydration, syncope, or neurologic changes). Follow up with PMD and/or specialist as recommended, follow up information provided, take medications as instructed for duration of time. continue with supportive care, avoid triggers and precipitants. All questions answered to patient's satisfaction and expressed understanding and comfort with this. 07/22/18 11:16 07/22/18 11:26 *DC/Admit/Observation/Transfer Diagnosis at time of Disposition: Suprapubic catheter, Urinary catheter complication - Discharge Dispostion Disposition: LONG TERM FACILITY Condition at time of disposition: Good Decision to Admit order: No - Referrals Referrals: Jasmin Liang MD [Staff Physician] - Tye Bruce MD [Staff Physician] - - Patient Instructions Printed Discharge Instructions: How to Care for Your Daigle Catheter -- Male, DI for Urinary Catheter Removal Additional Instructions: your suprapubic catheter was replaced, 24 Chilean with good outflow. obstruction relieved, keep it attached to the leg bag and monitor output. your urinalysis preliminarily showed no signs of infection, but follow up on the urine cultures (you have just finished your previous course of antibiotics as well and also likely chronic colonizer with long standing catheter use). keep the area clean and dry, do not pull on it. follow up with your primary doctor Dr. Liang and/or Dr. Bruce who was your prior urologist for your neurogenic bladder return precautions for worsening sympotms of infection including altered mental status, fevers, chills, abdominal pain, vomiting, diarrhea, dehydration, bloody output, obstruction or catheter complication. - Post Discharge Activity
[2018-07-22 10:57] LABS: URINE APPEARANCE CLEAR; URINE BILIRUBIN NEGATIVE (<2.0 mg/dL); URINE COLOR YELLOW; URINE GLUCOSE (UA) NEGATIVE (NEGATIVE); URINE KETONE NEGATIVE (NEGATIVE); URINE LEUK ESTERASE NEGATIVE (NEGATIVE); URINE NITRITE NEGATIVE (NEGATIVE); URINE PROTEIN NEGATIVE (NEGATIVE); URINE UROBILINOGEN NEGATIVE mg/dL (0.2-1.0)
[2018-07-22 11:14] VITALS: BP 98/68; PULSE 73
== END 2018-07-22 12:15 ==
LOC: SUPCPDRO 09:23 → JER 09:23
PROC: 0T2BX0Z Change Drainage Device in Bladder, External Approach (ICD-10-PCS; principal; 2018-07-22)
DX: T83.89XA Other specified complication of genitourinary prosthetic devices, implants and grafts, initial encounter (principal); I10 Essential (primary) hypertension; E78.5 Hyperlipidemia, unspecified; K21.9 Gastro-esophageal reflux disease without esophagitis; F20.9 Schizophrenia, unspecified; F31.9 Bipolar disorder, unspecified; N31.8 Other neuromuscular dysfunction of bladder; F03.90 Unspecified dementia, unspecified severity, without behavioral disturbance, psychotic disturbance, mood disturbance, and anxiety; Z86.718 Personal history of other venous thrombosis and embolism
CPT/HCPCS: 51702; 81003; 87086; 87186; 99283-25

== ENCOUNTER 2018-07-31 12:27 | Day surgery (SDC) | payer OTHER ==
[2018-07-28 13:03] VITALS: BMI 29.4
[2018-07-31] MEDS ORDERED: LIDOCAINE HCL/PF 2% SDV 5ML VIAL ONE (14:39)
[2018-07-31] MEDS ORDERED: PROPOFOL 20 ML ONE (14:40)
--- NOTE | 2018-07-31 14:58 | OP ---
Operative Note - Note: Operative Date: 07/31/18 Pre-Operative Diagnosis: neurogenic bladder Operation: cystoscopy/suprapubic tube change Post-Operative Diagnosis: Same as Pre-op Surgeon: Tye Bruce Anesthesia: Fractional Specimens Removed: 24 fr daigle Drains & Tubes with Location: spt which is a 24 fr daigle
[2018-07-31 17:23] VITALS: BP 112/74; PULSE 72; TEMP 97.9
--- NOTE | 2018-07-31 21:20 | OP ---
DATE OF OPERATION: 07/31/2018 PREOPERATIVE DIAGNOSIS: Neurogenic bladder. POSTOPERATIVE DIAGNOSIS: Neurogenic bladder. PROCEDURE: Cystoscopy and suprapubic tube exchange. OPERATION: The patient was brought in the operating room, placed in supine position on the operating room table. General anesthesia was administered to the patient. At this point, the patient was prepped and draped in the usual sterile manner. The suprapubic tube was removed. A 24-Indonesian catheter had been placed in the suprapubic tube site. At this point, cystoscopy was performed through the suprapubic tube tract. The bladder was noted to be heavily trabeculated. No evidence of neoplasm or stone was noted. At this point, a 24-Indonesian catheter was placed into the bladder. The suprapubic tube was irrigated, found to be in good position. This was left to straight drainage, no complications were noted. The patient was given Levaquin preoperatively for surgical prophylaxis. MANJIT RAMOS M.D. [id number]
== END 2018-07-31 16:55 | disposition home or self-care (01) ==
LOC: JASU-SURG 12:27
PROVIDERS: ATTEND Urology
PROC: 0T9B00Z Drainage of Bladder with Drainage Device, Open Approach (ICD-10-PCS; principal; 2018-07-31 09:00)
DX: N31.9 Neuromuscular dysfunction of bladder, unspecified (principal)
CPT/HCPCS: 82962

== ENCOUNTER 2018-10-20 22:50 | Emergency (ER) | payer OTHER ==
[2018-10-20 23:23] VITALS: BP 110/68; PULSE 85; TEMP 98.3; BMI 26.8
--- NOTE | 2018-10-20 23:36 | PDOC ---
History of Present Illness - General History Source: Patient Exam Limitations: No Limitations - History of Present Illness Initial Comments: 10/21/18 00:02 The patient is a 63 year old male with a PMH of hypertension, hyperlipidemia, GERD, schizophrenia, and neurogenic bladder, who presents to the ER from [facility] with his urinary catheter falling out. Patient has no other complaints. The patient denies dysuria, frequency, urgency and hematuria. Denies fever, chills, nausea, vomit, diarrhea and constipation. Allergies: NKDA Past surgical history: None reported Social history: None reported PCP: Garth Castellanos <Patricia Reno - Last Filed: 10/21/18 00:02> <Lui Man - Last Filed: 10/21/18 00:27> - General Chief Complaint: Urinary Catheter Problem Stated Complaint: Urinary Catheter Problem Time Seen by Provider: 10/20/18 23:15 Past History <Patricia Reno - Last Filed: 10/21/18 00:02> - Past Medical History Anemia: Yes Asthma: No Cancer: No Cardiac Disorders: Yes (PVD) CVA: No COPD: No CHF: No DVT: Yes Dementia: Yes Diabetes: No GI Disorders: Yes (GERD) Disorders: Yes (neurogenic bladder, s/p catheter, UTI) HTN: Yes Hypercholesterolemia: Yes Liver Disease: No Psychiatric Problems: Yes (Schizophrenia, bipolar) Seizures: No Thyroid Disease: No - Surgical History Abdominal Surgery: No Appendectomy: No Cardiac Surgery: No Cholecystectomy: No Lung Surgery: No Neurologic Surgery: No Orthopedic Surgery: No - Immunization History Immunization Up to Date: Yes - Suicide/Smoking/Psychosocial Hx Smoking Status: No Smoking History: Never smoked Have you smoked in the past 12 months: No Number of Cigarettes Smoked Daily: 0 Information on smoking cessation initiated: No Hx Alcohol Use: No Drug/Substance Use Hx: No Substance Use Type: None Hx Substance Use Treatment: No <Lui Man - Last Filed: 10/21/18 00:27> - Past Medical History Allergies/Adverse Reactions: Allergies Allergy/AdvReac Type Severity Reaction Status Date / Time No Known Drug Allergies Allergy Verified 07/31/18 12:42 Home Medications: Ambulatory Orders Acetaminophen 325 mg PO PRN 07/02/18 Aspirin 81 mg PO DAILY 07/02/18 Cholecalciferol (Vitamin D3) [D3-50] 50,000 unit PO WEEKLY 07/02/18 Dextromethorphan HBr/Quinidine [Nuedexta 20-10 mg Capsule] 1 each PO BID Dorzolamide HCl/Pf [Dorzolamide 2% Eye Drop] 1 drop OS BID 07/02/18 Lactobacillus Acidophilus [Bacid -] 1 each PO DAILY 07/02/18 Latanoprost 0.005% Eye Drops [Xalatan 0.005% Eye Drops -] 1 drop HS 07/02/18 Pantoprazole Sodium [Protonix -] 20 mg PO DAILY 07/02/18 Polyethylene Glycol 3350 [Miralax (For Daily Use) -] 17 gm PO DAILY 07/02/18 Quetiapine Fumarate [Seroquel -] 25 mg PO HS 07/02/18 Risperidone [Risperdal] 1 mg PO DAILY 07/02/18 Risperidone [Risperdal] 2 mg PO HS 07/02/18 Sennosides [Senna] 8.6 mg PO HS 07/02/18 Valproic Acid [Depakene] 250 mg PO TID 07/02/18 Folic Acid 1 mg PO DAILY 07/28/18 Morphine Oral Concentrate [Roxanol 20 mg/ml Liquid -] 10 mg PO Q6H 07/28/18 Sodium Phosphate,[facility]od-Dibasic [Fleet Enema] 133 ml RC PRN 07/28/18 *Physical Exam - Vital Signs Last Vital Signs Temp Pulse Resp BP Pulse Ox 98.3 F 85 18 110/68 100 10/20/18 23:11 10/20/18 23:11 10/20/18 23:11 10/20/18 23:11 10/20/18 23:11 <Patricia Reno - Last Filed: 10/21/18 00:02> - Vital Signs Last Vital Signs Temp Pulse Resp BP Pulse Ox 98.3 F 85 18 110/68 100 10/20/18 23:11 10/20/18 23:11 10/20/18 23:11 10/20/18 23:11 10/20/18 23:11 - Physical Exam Comments: 10/21/18 00:24 REVIEW OF SYSTEMS CONSTITUTIONAL: No fever, no chills, no fatigue EYES: No visual changes ENT: No ear pain, no sore throat CARDIOVASCULAR: No chest pain, no palpitations RESPIRATORY: No cough, no SOB GI: No abdominal pain, no nausea, no vomiting, no constipation, no diarrhea GENITOURINARY: + dislodged suprapubic daigle catheter MUSKULOSKELETAL: No backpain, no joint pain, no myalgias SKIN: No rash NEURO: No headache EXAMINATION CONSTITUTIONAL: awake,m alert, [place], nad HEAD: Normocephalic; atraumatic EYES: PERRL; EOM intact ENMT: External appears normal; +poor dentition NECK: Supple; non-tender; no cervical lymphadenopathy CARD: Normal S1, S2; no murmurs, rubs, or gallops RESP: Normal chest excursion with respiration; breath sounds clear and equal bilaterally; no wheezes, rhonchi, or rales ABD: Soft, non-distended; non-tender; no palpable organomegaly, +suprapubic stoma in place EXT: Normal ROM in all four extremities; non-tender to palpation; distal pulses intact SKIN: Warm, dry, no rash NEURO: awake,m alert, moving all extr symmetrically <Lui Man - Last Filed: 10/21/18 00:27> Moderate Sedation - Procedure Monitoring Vital Signs: Procedure Monitoring Vital Signs Temperature 98.3 F 10/20/18 23:11 Pulse Rate 85 10/20/18 23:11 Respiratory Rate 18 10/20/18 23:11 Blood Pressure 110/68 10/20/18 23:11 O2 Sat by Pulse Oximetry (%) 100 10/20/18 23:11 <Patricia Reno - Last Filed: 10/21/18 00:02> - Procedure Monitoring Vital Signs: Procedure Monitoring Vital Signs Temperature 98.3 F 10/20/18 23:11 Pulse Rate 85 10/20/18 23:11 Respiratory Rate 18 10/20/18 23:11 Blood Pressure 110/68 10/20/18 23:11 O2 Sat by Pulse Oximetry (%) 100 10/20/18 23:11 <Lui Man - Last Filed: 10/21/18 00:27> Medical Decision Making - Medical Decision Making 10/21/18 00:26 Patient is 63-year-old male with history of schizophrenia, neurogenic bladder, multiple comorbidities presents after a dislodged suprapubic Daigle catheter. Patient denies any other acute symptomatology. Daigle catheter replaced. Urinalysis and urine culture obtained to be followed up by PMD. Will discharge. <Lui Man - Last Filed: 10/21/18 00:27> *DC/Admit/Observation/Transfer <Patricia Reno - Last Filed: 10/21/18 00:02> <Lui Man - Last Filed: 10/21/18 00:27> Diagnosis at time of Disposition: Suprapubic catheter - Discharge Dispostion Disposition: HOME Condition at time of disposition: Stable - Referrals Referrals: Jasmin Liang MD [Primary Care Provider] - - Patient Instructions Printed Discharge Instructions: How to Care for a Suprapubic Catheter - Post Discharge Activity
[2018-10-21 01:34] LABS: URINE APPEARANCE CLEAR; URINE BILIRUBIN NEGATIVE (<2.0 mg/dL); URINE COLOR COLORLESS; URINE GLUCOSE (UA) NEGATIVE (NEGATIVE); URINE KETONE NEGATIVE (NEGATIVE); URINE LEUK ESTERASE TRACE (NEGATIVE); URINE NITRITE NEGATIVE (NEGATIVE); URINE PROTEIN NEGATIVE (NEGATIVE); URINE UROBILINOGEN NEGATIVE mg/dL (0.2-1.0)
== END 2018-10-21 03:01 | disposition home or self-care (01) ==
LOC: JER 22:50
PROC: 0TWBX0Z Revision of Drainage Device in Bladder, External Approach (ICD-10-PCS; principal; 2018-10-20)
DX: Z46.6 Encounter for fitting and adjustment of urinary device (principal); Z86.718 Personal history of other venous thrombosis and embolism; I10 Essential (primary) hypertension; K21.9 Gastro-esophageal reflux disease without esophagitis; E78.00 Pure hypercholesterolemia, unspecified; F20.9 Schizophrenia, unspecified; I73.9 Peripheral vascular disease, unspecified
CPT/HCPCS: 81003; 81015; 87086; 87186; 99281-25

== ENCOUNTER 2018-10-24 09:43 | Emergency (ER) | payer OTHER ==
--- NOTE | 2018-10-24 09:48 | PDOC ---
History of Present Illness - History of Present Illness Initial Comments: 10/24/18 09:51 The patient is a 63 year old male, with a significant PMH of hypertension, hyperlipidemia, GERD, schizophrenia, and neurogenic bladder, who presents to the emergency department via ambulance from [facility] with dislodged suprapubic catheter and associated discomfort to the site today. The patient denies dysuria, frequency, urgency and hematuria. Denies fever, chills, nausea, vomit, diarrhea and constipation.The patient denies any pain. PCP: Dr Jasmin Liang <Luci Herring - Last Filed: 10/24/18 09:51> - General History Source: Patient Exam Limitations: No Limitations <Ashley Mallory - Last Filed: 10/24/18 11:14> - General Chief Complaint: Urinary Catheter Problem Stated Complaint: ESPINOZA REPLACEMENT Time Seen by Provider: 10/24/18 09:48 Past History <Luci Herring - Last Filed: 10/24/18 09:51> - Past Medical History Anemia: Yes Asthma: No Cancer: No Cardiac Disorders: Yes (PVD) CVA: No COPD: No CHF: No DVT: Yes Dementia: Yes Diabetes: No GI Disorders: Yes (GERD) Disorders: Yes (neurogenic bladder, s/p catheter, UTI) HTN: Yes Hypercholesterolemia: Yes Liver Disease: No Psychiatric Problems: Yes (Schizophrenia, bipolar) Seizures: No Thyroid Disease: No - Surgical History Abdominal Surgery: No Appendectomy: No Cardiac Surgery: No Cholecystectomy: No Lung Surgery: No Neurologic Surgery: No Orthopedic Surgery: No - Immunization History Immunization Up to Date: Yes - Suicide/Smoking/Psychosocial Hx Smoking Status: No Smoking History: Never smoked Have you smoked in the past 12 months: No Number of Cigarettes Smoked Daily: 0 Hx Alcohol Use: No Drug/Substance Use Hx: No Substance Use Type: None Hx Substance Use Treatment: No <Ashley Mallory - Last Filed: 10/24/18 11:14> - Past Medical History Allergies/Adverse Reactions: Allergies Allergy/AdvReac Type Severity Reaction Status Date / Time No Known Drug Allergies Allergy Verified 10/24/18 09:47 Home Medications: Ambulatory Orders Acetaminophen 650 mg PO PRN PRN 07/02/18 Aspirin 81 mg PO DAILY 07/02/18 Cholecalciferol (Vitamin D3) [D3-50] 50,000 unit PO WEEKLY 07/02/18 Dextromethorphan HBr/Quinidine [Nuedexta 20-10 mg Capsule] 1 each PO BID Dorzolamide HCl/Pf [Dorzolamide 2% Eye Drop] 1 drop OS BID 07/02/18 Lactobacillus Acidophilus [Bacid -] 1 each PO DAILY 07/02/18 Latanoprost 0.005% Eye Drops [Xalatan 0.005% Eye Drops -] 1 drop OU HS 07/02/18 Pantoprazole Sodium [Protonix -] 20 mg PO DAILY 07/02/18 Polyethylene Glycol 3350 [Miralax (For Daily Use) -] 17 gm PO DAILY 07/02/18 Quetiapine Fumarate [Seroquel -] 25 mg PO HS 07/02/18 Risperidone [Risperdal] 1 mg PO DAILY 07/02/18 Risperidone [Risperdal] 2 mg PO HS 07/02/18 Sennosides [Senna] 8.6 mg PO HS 07/02/18 Valproic Acid [Depakene] 500 mg PO BID 07/02/18 Folic Acid 1 mg PO DAILY 07/28/18 Cefpodoxime Proxetil [Vantin -] 100 mg PO BID #14 tablet 10/24/18 Sulfamethoxazole/Trimethoprim [Bactrim Ds -] 1 tab PO BID #14 tablet 10/24/18 Review of Systems - Review of Systems Able to Perform ROS?: Yes Comments:: 10/24/18 09:53 CONSTITUTIONAL: Absent: fever, no chills, no fatigue EYES: Absent: visual changes ENT: Absent: ear pain, no sore throat CARDIOVASCULAR: Absent: chest pain, no palpitations RESPIRATORY: Absent: cough, no SOB GASTROINTESTINAL: Absent: abdominal pain, no nausea, no vomiting, no constipation, no diarrhea GENITOURINARY: (+) dislodged suprapubic catheter. Absent: dysuria, no frequency, no hematuria MUSCULOSKELETAL: Absent: back pain, no arthralgia, no myalgia SKIN: Absent: rash NEURO: Absent: headache <Luci Herring - Last Filed: 10/24/18 09:51> *Physical Exam - Vital Signs Last Vital Signs Temp Pulse Resp BP Pulse Ox 97.9 F 88 18 122/78 99 10/24/18 09:45 10/24/18 09:45 10/24/18 09:45 10/24/18 09:45 10/24/18 09:45 - Physical Exam Comments: 10/24/18 09:53 GENERAL: The patient is in no acute distress. HEAD: Normal with no signs of trauma. EYES: PERRLA, EOMI, sclera anicteric, conjunctiva clear. ENT: Ears normal, nares patent, oropharynx clear without exudates. Moist mucous membranes. NECK: Normal range of motion, supple without lymphadenopathy, JVD, or masses. LUNGS: Breath sounds equal, clear to auscultation bilaterally. No wheezes, and no crackles. HEART:Regular rate and rhythm, normal S1 and S2 without murmur, rub or gallop. ABDOMEN: (+) well formed superpubic catheter tract with urine leaking out. no surrounding erythema or tenderness. Soft, nontender, normoactive bowel sounds. No guarding, no rebound. No masses palpable. EXTREMITIES: Normal range of motion, no edema. No clubbing or cyanosis. No erythema, or tenderness. NEUROLOGICAL: Cranial nerves II through XII grossly intact. Normal speech. No focal neurological deficits. MUSCULOSKELETAL: Back non-tender to palpation, no CVA tenderness SKIN: Warm, Dry, normal turgor, no rashes or lesions noted. <Luci Herring - Last Filed: 10/24/18 09:51> - Vital Signs Last Vital Signs Temp Pulse Resp BP Pulse Ox 97.9 F 88 18 122/78 99 10/24/18 09:45 10/24/18 09:45 10/24/18 09:45 10/24/18 09:45 10/24/18 09:45 <Ashley Mallory - Last Filed: 10/24/18 11:14> Moderate Sedation - Procedure Monitoring Vital Signs: Procedure Monitoring Vital Signs Temperature 97.9 F 10/24/18 09:45 Pulse Rate 88 10/24/18 09:45 Respiratory Rate 18 10/24/18 09:45 Blood Pressure 122/78 10/24/18 09:45 O2 Sat by Pulse Oximetry (%) 99 10/24/18 09:45 <Luci Herring - Last Filed: 10/24/18 09:51> - Procedure Monitoring Vital Signs: Procedure Monitoring Vital Signs Temperature 97.9 F 10/24/18 09:45 Pulse Rate 88 10/24/18 09:45 Respiratory Rate 18 10/24/18 09:45 Blood Pressure 122/78 10/24/18 09:45 O2 Sat by Pulse Oximetry (%) 99 10/24/18 09:45 <Ashley Mallory - Last Filed: 10/24/18 11:14> Medical Decision Making - Medical Decision Making 10/24/18 09:56 Mr Ray is a 63 yo M h/o schizophrenia and neurogenic bladder who presents to the ER from [facility] due to suprapubic cathether removal Pt states it was accidentally dislodged this morning No pain No fevers Patient was noted to have a 26 [place] at the senior living. A 26 [place] catheter was inserted without difficulty. 300 cc urine output. We'll obtain a urinalysis to rule out urinary tract infection. If the workup is unremarkable, the patient can be discharged back to senior living. 10/24/18 10:29 suprapubic cathether placed Urine clear Sent for UA 10/24/18 11:01 Laboratory Tests 10/24/18 10:20 Urine Blood 1+ H Urine Nitrite Negative Ur Leukocyte Esterase 3+ H Urine WBC (Auto) 58 Urine RBC (Auto) <1 Ur Epithelial Cells Rare Urine Bacteria Moderate UA shows 3+ leuk and 58 WBC. Will send patient back to [facility]. 10/24/18 11:[address] norton Recommends Bactrim Will d/c on bactrim and cefpodoxime Dr norton will follow up urine culture <Ashley Mallory - Last Filed: 10/24/18 11:14> *DC/Admit/Observation/Transfer - Attestations Scribe Attestion: 10/24/18 09:54 Documentation prepared by Luci Herring, acting as medical aides teacher for Ashley Mallory MD <Luci Herring - Last Filed: 10/24/18 09:51> - Discharge Dispostion Decision to Admit order: No <Ashley Mallory - Last Filed: 10/24/18 11:14> Diagnosis at time of Disposition: Urinary catheter complication Qualifiers: Encounter type: initial encounter Qualified Code(s): T83.9XXA - Unspecified complication of genitourinary prosthetic device, implant and graft, initial encounter - Discharge Dispostion Disposition: [facility] Condition at time of disposition: Stable - Patient Instructions Printed Discharge Instructions: How to Care for a Suprapubic Catheter Additional Instructions: PLEASE STOP REMOVING YOUR CATHETHER Please take antibiotics as prescribed
[2018-10-24 09:49] VITALS: TEMP 97.9; BMI 32.1
[2018-10-24 10:39] VITALS: BP 109/60; PULSE 86
[2018-10-24 10:49] LABS: URINE APPEARANCE SLCLOUDY; URINE BILIRUBIN NEGATIVE (<2.0 mg/dL); URINE COLOR LTYELLOW; URINE GLUCOSE (UA) NEGATIVE (NEGATIVE); URINE KETONE NEGATIVE (NEGATIVE); URINE LEUK ESTERASE 3+ (NEGATIVE); URINE NITRITE NEGATIVE (NEGATIVE); URINE PROTEIN NEGATIVE (NEGATIVE); URINE UROBILINOGEN NEGATIVE mg/dL (0.2-1.0)
[2018-10-24 10:51] LABS: EPI CELLS RARE /HPF (FEW); URINE BACTERIA MODERATE /hpf (NONE SEEN)
[2018-10-24] MEDS ORDERED: SULFAMETHOXAZOLE/TRIMETHOPRIM 800MG/160MG D.S. TABLET PO ONE (11:12)
[2018-10-24] MEDS ORDERED: SULFAMETHOXAZOLE/TRIMETHOPRIM 800MG/160MG D.S. TABLET ONE (11:30)
== END 2018-10-24 11:56 | disposition short-term general hospital (02) ==
LOC: JER 09:43
PROC: 0TWBX0Z Revision of Drainage Device in Bladder, External Approach (ICD-10-PCS; principal; 2018-10-24)
DX: Z46.6 Encounter for fitting and adjustment of urinary device (principal); E78.5 Hyperlipidemia, unspecified; I10 Essential (primary) hypertension; K21.9 Gastro-esophageal reflux disease without esophagitis; F20.9 Schizophrenia, unspecified
CPT/HCPCS: 51702; 81003; 81015; 87086; 87186; 99283-25

== ENCOUNTER 2024-07-25 09:18 | Day surgery (SDC) | payer OTHER ==
[2024-07-25] MEDS ORDERED: PROPOFOL 160 ML ONE (10:18)
[2024-07-25 10:26] VITALS: BMI 27.3
[2024-07-25 11:07] VITALS: PULSE 72; TEMP 97.1
[2024-07-25 11:43] VITALS: BP 117/61; RESP 18
== END 2024-07-25 11:53 ==
LOC: FASU-ENDO 09:18
PROVIDERS: ATTEND Internal Medicine Gastroenterology
PROC: 0DJD8ZZ Inspection of Lower Intestinal Tract, Via Natural or Artificial Opening Endoscopic (ICD-10-PCS; principal; 2024-07-25 10:36)
DX: Z12.11 Encounter for screening for malignant neoplasm of colon (principal); K64.1 Second degree hemorrhoids; K64.8 Other hemorrhoids